=== PATIENT | female | born 1950 | race Caucasian/White ===

== ENCOUNTER 2021-04-06 18:04 | Inpatient (IN) ==
[2021-04-06] MEDS ORDERED: polyethylene glycoL 3350 17 GM POWD.PACK PO PRN (18:15)
[2021-04-06] MEDS ORDERED: *HR* Dextrose 50 % in Water (Syg) 50 ML SYRINGE IVP PRN (18:20)
[2021-04-06] MEDS ORDERED: D5% in Water 1,000 ML IVC PRN (18:20)
[2021-04-06] MEDS ORDERED: Dextrose Gel 15 GM/37.5 ML TUBE PO PRN ×2 (18:20)
[2021-04-07] MEDS: Insulin LISPRO 300 UNITS/3 ML VIAL SUBQ SCH ×5 (01:33→22:30)
[2021-04-07] MEDS: Apixaban 5 MG TABLET PO SCH ×3 (01:33→22:39)
[2021-04-07] MEDS: Gabapentin 400 MG CAPSULE PO SCH ×4 (01:33→22:39)
[2021-04-07] MEDS: Nystatin POWDER 30 GM BOTTLE TP SCH ×4 (01:33→22:40)
[2021-04-07] MEDS: *HR* OxyCODONE Immed Rel 5 MG TABLET PO PRN ×2 (01:40→12:06)
[2021-04-07 08:07] LABS: Basophils % 0.3 %; Eosinophils # 0.3 K/mcL (0.0-0.6); Eosinophils % 8.6 %; Hematocrit 27.3 % (35.3-44.9); Hemoglobin 8.3 g/dL (11.5-15.4); Immature Granulocytes % 1.4 % (0-4); Lymphocytes # 0.8 K/mcL (0.6-4.6); Lymphocytes % 26.4 %; Mean Corpuscular HGB Conc 30.4 g/dL (31.6-35.5); Mean Corpuscular Volume 88.9 fL (83.0-100.0); Mean Platelet Volume 11.3 fL (9.4-12.4); Monocytes # 0.4 K/mcL (0.0-1.3); Neutrophils # 1.5 K/mcL (1.6-8.9); Nucleated Red Blood Cells 0.7 /100 WBC (0); Platelet Count 174 K/mcL (140-400); Red Blood Count 3.07 M/mcL (3.82-4.97); Red Cell Distribution Width 17.2 % (11.5-14.5); Segmented Neutrophils % 51.3 %; White Blood Count 2.9 K/mcL (4.3-11.1)
[2021-04-07 08:23] LABS: BUN/Creatinine Ratio 18 (6-26); Blood Urea Nitrogen 12 mg/dL (8-23); Calcium 8.1 mg/dL (8.6-10.3); Carbon Dioxide 30 mEq/L (23-29); Chloride 101 mEq/L (98-107); Glucose 87 mg/dL (70-105); Osmolality,Calculated 281 (280-300); Potassium 4.1 mEq/L (3.5-5.1); Sodium 136 mEq/L (136-145); eGFR For African Americans > 60 (> 60); eGFR For Non-African Americans > 60 (> 60)
[2021-04-07] MEDS: Magnesium Oxide 400 MG TABLET PO SCH (08:39)
[2021-04-07] MEDS: Metoprolol XL (24 HR) Succ 25 MG TAB.ER.24H PO SCH (08:40)
[2021-04-07] MEDS: Loratadine 10 MG TABLET PO SCH (08:40)
[2021-04-07] MEDS: Aspirin 81 MG TAB.CHEW PO SCH (08:40)
[2021-04-07] MEDS: Insulin DETEMIR 100 UNIT/ML X5UNITS SUBQ SCH ×2 (09:21→22:31)
[2021-04-07 10:59] LABS: Platelet Estimate Normal (Normal)
[2021-04-08] MEDS: Insulin LISPRO 300 UNITS/3 ML VIAL SUBQ SCH ×4 (09:48→20:59)
[2021-04-08] MEDS: Insulin DETEMIR 100 UNIT/ML X5UNITS SUBQ SCH ×2 (10:43→20:59)
[2021-04-08] MEDS: Loratadine 10 MG TABLET PO SCH (10:44)
[2021-04-08] MEDS: Aspirin 81 MG TAB.CHEW PO SCH (10:44)
[2021-04-08] MEDS: Gabapentin 400 MG CAPSULE PO SCH ×3 (10:46→20:58)
[2021-04-08] MEDS: Magnesium Oxide 400 MG TABLET PO SCH (10:46)
[2021-04-08] MEDS: Apixaban 5 MG TABLET PO SCH ×2 (10:46→20:58)
[2021-04-08] MEDS: Metoprolol XL (24 HR) Succ 25 MG TAB.ER.24H PO SCH (10:46)
[2021-04-08] MEDS: Nystatin POWDER 30 GM BOTTLE TP SCH ×3 (12:06→21:00)
[2021-04-08] MEDS: *HR* OxyCODONE Immed Rel 5 MG TABLET PO PRN (21:32)
[2021-04-09] MEDS: Insulin LISPRO 300 UNITS/3 ML VIAL SUBQ SCH ×4 (08:22→20:41)
[2021-04-09] MEDS: Aspirin 81 MG TAB.CHEW PO SCH (08:28)
[2021-04-09] MEDS: Magnesium Oxide 400 MG TABLET PO SCH (08:28)
[2021-04-09] MEDS: Apixaban 5 MG TABLET PO SCH ×2 (08:29→20:37)
[2021-04-09] MEDS: Gabapentin 400 MG CAPSULE PO SCH ×3 (08:29→20:36)
[2021-04-09] MEDS: Metoprolol XL (24 HR) Succ 25 MG TAB.ER.24H PO SCH (08:29)
[2021-04-09] MEDS: Loratadine 10 MG TABLET PO SCH (08:29)
[2021-04-09] MEDS: Insulin DETEMIR 100 UNIT/ML X5UNITS SUBQ SCH ×2 (08:30→20:40)
[2021-04-09] MEDS: Nystatin POWDER 30 GM BOTTLE TP SCH ×3 (09:48→20:41)
[2021-04-10] MEDS: Insulin LISPRO 300 UNITS/3 ML VIAL SUBQ SCH ×4 (07:44→22:02)
[2021-04-10] MEDS: Insulin DETEMIR 100 UNIT/ML X5UNITS SUBQ SCH ×2 (08:00→22:54)
[2021-04-10] MEDS: Loratadine 10 MG TABLET PO SCH (10:25)
[2021-04-10] MEDS: Gabapentin 400 MG CAPSULE PO SCH ×3 (10:25→22:54)
[2021-04-10] MEDS: Aspirin 81 MG TAB.CHEW PO SCH (10:25)
[2021-04-10] MEDS: Metoprolol XL (24 HR) Succ 25 MG TAB.ER.24H PO SCH (10:25)
[2021-04-10] MEDS: Magnesium Oxide 400 MG TABLET PO SCH (10:25)
[2021-04-10] MEDS: Nystatin POWDER 30 GM BOTTLE TP SCH ×3 (10:26→23:00)
[2021-04-10] MEDS: Apixaban 5 MG TABLET PO SCH ×2 (10:28→22:54)
[2021-04-10] MEDS: *HR* OxyCODONE Immed Rel 5 MG TABLET PO PRN (12:22)
[2021-04-11] MEDS: Gabapentin 400 MG CAPSULE PO SCH ×3 (08:04→22:34)
[2021-04-11] MEDS: Aspirin 81 MG TAB.CHEW PO SCH (08:04)
[2021-04-11] MEDS: Apixaban 5 MG TABLET PO SCH ×2 (08:05→22:34)
[2021-04-11] MEDS: Magnesium Oxide 400 MG TABLET PO SCH (08:05)
[2021-04-11] MEDS: Metoprolol XL (24 HR) Succ 25 MG TAB.ER.24H PO SCH (08:05)
[2021-04-11] MEDS: Loratadine 10 MG TABLET PO SCH (08:06)
[2021-04-11] MEDS: Insulin LISPRO 300 UNITS/3 ML VIAL SUBQ SCH ×4 (08:06→22:34)
[2021-04-11] MEDS: Insulin DETEMIR 100 UNIT/ML X5UNITS SUBQ SCH ×2 (08:07→22:34)
[2021-04-11] MEDS: Nystatin POWDER 30 GM BOTTLE TP SCH ×3 (08:10→22:40)
[2021-04-11] MEDS: *HR* OxyCODONE Immed Rel 5 MG TABLET PO PRN (22:36)
[2021-04-12] MEDS: Insulin LISPRO 300 UNITS/3 ML VIAL SUBQ SCH ×3 (08:56→16:50)
[2021-04-12] MEDS: Apixaban 5 MG TABLET PO SCH ×2 (09:01→20:52)
[2021-04-12] MEDS: Gabapentin 400 MG CAPSULE PO SCH ×3 (09:02→20:52)
[2021-04-12] MEDS: Nystatin POWDER 30 GM BOTTLE TP SCH ×2 (09:02→16:50)
[2021-04-12] MEDS: Aspirin 81 MG TAB.CHEW PO SCH (09:02)
[2021-04-12] MEDS: Magnesium Oxide 400 MG TABLET PO SCH (09:02)
[2021-04-12] MEDS: Metoprolol XL (24 HR) Succ 25 MG TAB.ER.24H PO SCH (09:02)
[2021-04-12] MEDS: Loratadine 10 MG TABLET PO SCH (09:02)
[2021-04-12] MEDS: *HR* OxyCODONE Immed Rel 5 MG TABLET PO PRN ×2 (09:11→16:49)
[2021-04-12] MEDS: Insulin DETEMIR 100 UNIT/ML X5UNITS SUBQ SCH ×2 (09:25→20:53)
[2021-04-12 16:05] LABS: Bilirubin,Urine Negative (Negative); Blood,Urine Trace-lysed (Negative); Clarity,Urine Cloudy (Clear); Color,Urine Yellow (Yellow); Glucose,Urine (UA) 250 mg/dL (Normal); Ketones,Urine Negative (Negative); Leukocyte Esterase,Urine Moderate (Negative); Nitrite,Urine Negative (Negative); PH,Urine 5.5 pH Units (5.0-8.0); Protein,Urine Trace mg/dL (Neg-Trace); Specific Gravity,Urine 1.015 (1.010-1.025); Urobilinogen,Urine Normal (Normal)
[2021-04-12 16:10] LABS: Bacteria,Urine Many per hpf (None-Few); RBC,Urine 0-3 per hpf (0-3); Squamous Epithelial Cell,Urine Few per hpf (None-Few); WBC,Urine 50-100 per hpf (0-3)
[2021-04-12] MEDS: Sulfamethoxazole/Trimeth DS 1 EACH TABLET PO SCH (20:53)
[2021-04-13] MEDS: Insulin LISPRO 300 UNITS/3 ML VIAL SUBQ SCH ×5 (00:09→21:09)
[2021-04-13] MEDS: Nystatin POWDER 30 GM BOTTLE TP SCH ×4 (00:10→21:11)
[2021-04-13] MEDS: *HR* OxyCODONE Immed Rel 5 MG TABLET PO PRN ×2 (04:04→11:39)
[2021-04-13] MEDS: Insulin DETEMIR 100 UNIT/ML X5UNITS SUBQ SCH ×2 (10:00→21:03)
[2021-04-13] MEDS: Gabapentin 400 MG CAPSULE PO SCH ×3 (11:38→21:03)
[2021-04-13] MEDS: Loratadine 10 MG TABLET PO SCH (11:38)
[2021-04-13] MEDS: Aspirin 81 MG TAB.CHEW PO SCH (11:38)
[2021-04-13] MEDS: Metoprolol XL (24 HR) Succ 25 MG TAB.ER.24H PO SCH (11:39)
[2021-04-13] MEDS: Sulfamethoxazole/Trimeth DS 1 EACH TABLET PO SCH ×2 (11:39→21:03)
[2021-04-13] MEDS: Magnesium Oxide 400 MG TABLET PO SCH (11:39)
[2021-04-13] MEDS: Apixaban 5 MG TABLET PO SCH ×2 (11:40→21:03)
[2021-04-13 12:37] LABS: Basophils % 0.5 %; Eosinophils # 0.7 K/mcL (0.0-0.6); Eosinophils % 11.1 %; Hematocrit 28.3 % (35.3-44.9); Hemoglobin 8.4 g/dL (11.5-15.4); Immature Granulocytes % 1.8 % (0-4); Lymphocytes % 15.8 %; Mean Corpuscular HGB Conc 29.7 g/dL (31.6-35.5); Mean Corpuscular Hemoglobin 26.8 pg (28.0-33.3); Mean Corpuscular Volume 90.4 fL (83.0-100.0); Mean Platelet Volume 10.5 fL (9.4-12.4); Monocytes # 0.5 K/mcL (0.0-1.3); Monocytes % 7.7 %; Neutrophils # 3.8 K/mcL (1.6-8.9); Platelet Count 286 K/mcL (140-400); Red Blood Count 3.13 M/mcL (3.82-4.97); Red Cell Distribution Width 18.1 % (11.5-14.5); Segmented Neutrophils % 63.1 %
[2021-04-13 12:53] LABS: BUN/Creatinine Ratio 18 (6-26); Blood Urea Nitrogen 15 mg/dL (8-23); Calcium 8.5 mg/dL (8.6-10.3); Carbon Dioxide 28 mEq/L (23-29); Chloride 98 mEq/L (98-107); Glucose 160 mg/dL (70-105); Osmolality,Calculated 280 (280-300); Sodium 133 mEq/L (136-145); eGFR For African Americans > 60 (> 60); eGFR For Non-African Americans > 60 (> 60)
[2021-04-13] MEDS: Fluticasone Propionate Nasal 50 MCG/SPRAY BOTTLE NS SCH (18:21)
[2021-04-14] MEDS: *HR* OxyCODONE Immed Rel 5 MG TABLET PO PRN ×3 (01:17→20:07)
[2021-04-14] MEDS: Insulin LISPRO 300 UNITS/3 ML VIAL SUBQ SCH ×4 (07:34→19:58)
[2021-04-14] MEDS: Sulfamethoxazole/Trimeth DS 1 EACH TABLET PO SCH ×2 (08:41→19:53)
[2021-04-14] MEDS: Apixaban 5 MG TABLET PO SCH ×2 (08:41→19:53)
[2021-04-14] MEDS: Aspirin 81 MG TAB.CHEW PO SCH (08:41)
[2021-04-14] MEDS: Insulin DETEMIR 100 UNIT/ML X5UNITS SUBQ SCH ×2 (08:41→19:55)
[2021-04-14] MEDS: Metoprolol XL (24 HR) Succ 25 MG TAB.ER.24H PO SCH (08:41)
[2021-04-14] MEDS: Loratadine 10 MG TABLET PO SCH (08:41)
[2021-04-14] MEDS: Magnesium Oxide 400 MG TABLET PO SCH (08:41)
[2021-04-14] MEDS: Gabapentin 400 MG CAPSULE PO SCH ×3 (08:41→19:53)
[2021-04-14] MEDS: Fluticasone Propionate Nasal 50 MCG/SPRAY BOTTLE NS SCH (08:52)
[2021-04-14] MEDS: Nystatin POWDER 30 GM BOTTLE TP SCH ×3 (08:56→19:59)
[2021-04-15] MEDS: *HR* OxyCODONE Immed Rel 5 MG TABLET PO PRN ×2 (04:59→14:06)
[2021-04-15] MEDS: Insulin LISPRO 300 UNITS/3 ML VIAL SUBQ SCH ×4 (09:21→20:36)
[2021-04-15] MEDS: Magnesium Oxide 400 MG TABLET PO SCH (09:22)
[2021-04-15] MEDS: Sulfamethoxazole/Trimeth DS 1 EACH TABLET PO SCH ×2 (09:23→20:12)
[2021-04-15] MEDS: Gabapentin 400 MG CAPSULE PO SCH ×3 (09:23→20:12)
[2021-04-15] MEDS: Nystatin POWDER 30 GM BOTTLE TP SCH ×3 (09:23→21:35)
[2021-04-15] MEDS: Loratadine 10 MG TABLET PO SCH (09:23)
[2021-04-15] MEDS: Fluticasone Propionate Nasal 50 MCG/SPRAY BOTTLE NS SCH (09:23)
[2021-04-15] MEDS: Metoprolol XL (24 HR) Succ 25 MG TAB.ER.24H PO SCH (09:23)
[2021-04-15] MEDS: Apixaban 5 MG TABLET PO SCH ×2 (09:24→20:12)
[2021-04-15] MEDS: Insulin DETEMIR 100 UNIT/ML X5UNITS SUBQ SCH ×2 (09:24→20:17)
[2021-04-15] MEDS: Aspirin 81 MG TAB.CHEW PO SCH (09:24)
[2021-04-16] MEDS: Insulin LISPRO 300 UNITS/3 ML VIAL SUBQ SCH ×4 (08:14→22:08)
[2021-04-16 08:33] LABS: Hematocrit 29.1 % (35.3-44.9); Hemoglobin 8.7 g/dL (11.5-15.4); Mean Corpuscular HGB Conc 29.9 g/dL (31.6-35.5); Mean Corpuscular Hemoglobin 26.9 pg (28.0-33.3); Mean Corpuscular Volume 90.1 fL (83.0-100.0); Platelet Count 299 K/mcL (140-400); Red Blood Count 3.23 M/mcL (3.82-4.97); Red Cell Distribution Width 18.7 % (11.5-14.5); White Blood Count 6.5 K/mcL (4.3-11.1)
[2021-04-16] MEDS: Magnesium Oxide 400 MG TABLET PO SCH (08:36)
[2021-04-16] MEDS: Sulfamethoxazole/Trimeth DS 1 EACH TABLET PO SCH ×2 (08:36→22:08)
[2021-04-16] MEDS: Loratadine 10 MG TABLET PO SCH (08:36)
[2021-04-16] MEDS: Aspirin 81 MG TAB.CHEW PO SCH (08:36)
[2021-04-16] MEDS: Apixaban 5 MG TABLET PO SCH ×2 (08:36→22:08)
[2021-04-16] MEDS: Gabapentin 400 MG CAPSULE PO SCH ×3 (08:37→22:08)
[2021-04-16] MEDS: Metoprolol XL (24 HR) Succ 25 MG TAB.ER.24H PO SCH (08:37)
[2021-04-16] MEDS: *HR* OxyCODONE Immed Rel 5 MG TABLET PO PRN (08:43)
[2021-04-16] MEDS: Insulin DETEMIR 100 UNIT/ML X5UNITS SUBQ SCH ×2 (08:43→22:07)
[2021-04-16] MEDS: Fluticasone Propionate Nasal 50 MCG/SPRAY BOTTLE NS SCH (08:44)
[2021-04-16] MEDS: Nystatin POWDER 30 GM BOTTLE TP SCH ×3 (08:44→22:09)
[2021-04-16 09:06] LABS: BUN/Creatinine Ratio 22 (6-26); Blood Urea Nitrogen 19 mg/dL (8-23); Calcium 8.4 mg/dL (8.6-10.3); Carbon Dioxide 26 mEq/L (23-29); Chloride 99 mEq/L (98-107); Glucose 107 mg/dL (70-105); Osmolality,Calculated 279 (280-300); Potassium 3.9 mEq/L (3.5-5.1); Sodium 133 mEq/L (136-145); eGFR For African Americans > 60 (> 60); eGFR For Non-African Americans > 60 (> 60)
[2021-04-17] MEDS: Loratadine 10 MG TABLET PO SCH (08:49)
[2021-04-17] MEDS: Gabapentin 400 MG CAPSULE PO SCH ×3 (08:49→19:44)
[2021-04-17] MEDS: Apixaban 5 MG TABLET PO SCH ×2 (08:49→19:45)
[2021-04-17] MEDS: Sulfamethoxazole/Trimeth DS 1 EACH TABLET PO SCH (08:49)
[2021-04-17] MEDS: Aspirin 81 MG TAB.CHEW PO SCH (08:49)
[2021-04-17] MEDS: Magnesium Oxide 400 MG TABLET PO SCH (08:49)
[2021-04-17] MEDS: Metoprolol XL (24 HR) Succ 25 MG TAB.ER.24H PO SCH (08:50)
[2021-04-17] MEDS: Insulin DETEMIR 100 UNIT/ML X5UNITS SUBQ SCH ×2 (08:51→19:48)
[2021-04-17] MEDS: Nystatin POWDER 30 GM BOTTLE TP SCH ×3 (08:51→19:50)
[2021-04-17] MEDS: Insulin LISPRO 300 UNITS/3 ML VIAL SUBQ SCH ×4 (08:52→19:48)
[2021-04-17] MEDS: Fluticasone Propionate Nasal 50 MCG/SPRAY BOTTLE NS SCH (08:52)
[2021-04-17] MEDS: *HR* OxyCODONE Immed Rel 5 MG TABLET PO PRN (15:14)
[2021-04-18] MEDS: Insulin LISPRO 300 UNITS/3 ML VIAL SUBQ SCH ×4 (09:38→20:26)
[2021-04-18] MEDS: Loratadine 10 MG TABLET PO SCH (09:41)
[2021-04-18] MEDS: Apixaban 5 MG TABLET PO SCH ×2 (09:41→20:27)
[2021-04-18] MEDS: Gabapentin 400 MG CAPSULE PO SCH ×3 (09:41→20:27)
[2021-04-18] MEDS: Aspirin 81 MG TAB.CHEW PO SCH (09:41)
[2021-04-18] MEDS: Metoprolol XL (24 HR) Succ 25 MG TAB.ER.24H PO SCH (09:46)
[2021-04-18] MEDS: Magnesium Oxide 400 MG TABLET PO SCH (09:47)
[2021-04-18] MEDS: Insulin DETEMIR 100 UNIT/ML X5UNITS SUBQ SCH ×2 (09:47→20:27)
[2021-04-18] MEDS: Nystatin POWDER 30 GM BOTTLE TP SCH ×3 (09:49→20:32)
[2021-04-18] MEDS: Fluticasone Propionate Nasal 50 MCG/SPRAY BOTTLE NS SCH (09:49)
[2021-04-18] MEDS: *HR* OxyCODONE Immed Rel 5 MG TABLET PO PRN (16:04)
[2021-04-18] MEDS: Acetaminophen 325 MG TABLET PO PRN (22:13)
[2021-04-19] MEDS: Loratadine 10 MG TABLET PO SCH (08:20)
[2021-04-19] MEDS: Magnesium Oxide 400 MG TABLET PO SCH (08:20)
[2021-04-19] MEDS: Metoprolol XL (24 HR) Succ 25 MG TAB.ER.24H PO SCH (08:20)
[2021-04-19] MEDS: Aspirin 81 MG TAB.CHEW PO SCH (08:20)
[2021-04-19] MEDS: Apixaban 5 MG TABLET PO SCH ×2 (08:20→20:51)
[2021-04-19] MEDS: Insulin LISPRO 300 UNITS/3 ML VIAL SUBQ SCH ×4 (08:21→20:46)
[2021-04-19] MEDS: Insulin DETEMIR 100 UNIT/ML X5UNITS SUBQ SCH ×2 (08:21→20:52)
[2021-04-19] MEDS: Gabapentin 400 MG CAPSULE PO SCH ×3 (08:21→20:51)
[2021-04-19] MEDS: Nystatin POWDER 30 GM BOTTLE TP SCH ×3 (08:22→21:02)
[2021-04-19] MEDS: Fluticasone Propionate Nasal 50 MCG/SPRAY BOTTLE NS SCH (08:23)
[2021-04-19] MEDS: *HR* OxyCODONE Immed Rel 5 MG TABLET PO PRN ×2 (10:55→18:06)
[2021-04-19] MEDS: Acetaminophen 325 MG TABLET PO PRN (20:51)
[2021-04-20] MEDS: Insulin LISPRO 300 UNITS/3 ML VIAL SUBQ SCH ×4 (08:23→21:20)
[2021-04-20] MEDS: Metoprolol XL (24 HR) Succ 25 MG TAB.ER.24H PO SCH (09:11)
[2021-04-20] MEDS: Aspirin 81 MG TAB.CHEW PO SCH (09:11)
[2021-04-20] MEDS: Gabapentin 400 MG CAPSULE PO SCH ×3 (09:11→21:10)
[2021-04-20] MEDS: Loratadine 10 MG TABLET PO SCH (09:12)
[2021-04-20] MEDS: Nystatin POWDER 30 GM BOTTLE TP SCH ×3 (09:12→21:10)
[2021-04-20] MEDS: Apixaban 5 MG TABLET PO SCH ×2 (09:12→21:10)
[2021-04-20] MEDS: Magnesium Oxide 400 MG TABLET PO SCH (09:12)
[2021-04-20] MEDS: Fluticasone Propionate Nasal 50 MCG/SPRAY BOTTLE NS SCH (09:15)
[2021-04-20] MEDS: Insulin DETEMIR 100 UNIT/ML X5UNITS SUBQ SCH ×2 (09:21→21:10)
[2021-04-20] MEDS: *HR* OxyCODONE Immed Rel 5 MG TABLET PO PRN (10:19)
[2021-04-21 08:26] LABS: Basophils % 0.6 %; Eosinophils # 0.9 K/mcL (0.0-0.6); Hematocrit 27.8 % (35.3-44.9); Hemoglobin 8.4 g/dL (11.5-15.4); Immature Granulocytes % 1.3 % (0-4); Lymphocytes # 0.9 K/mcL (0.6-4.6); Mean Corpuscular HGB Conc 30.2 g/dL (31.6-35.5); Mean Corpuscular Hemoglobin 27.1 pg (28.0-33.3); Mean Corpuscular Volume 89.7 fL (83.0-100.0); Mean Platelet Volume 9.4 fL (9.4-12.4); Monocytes # 0.5 K/mcL (0.0-1.3); Monocytes % 9.3 %; Neutrophils # 2.9 K/mcL (1.6-8.9); Platelet Count 255 K/mcL (140-400); Red Cell Distribution Width 19.1 % (11.5-14.5); Segmented Neutrophils % 54.8 %; White Blood Count 5.3 K/mcL (4.3-11.1)
[2021-04-21] MEDS: Insulin LISPRO 300 UNITS/3 ML VIAL SUBQ SCH ×4 (08:38→21:00)
[2021-04-21 08:46] LABS: BUN/Creatinine Ratio 24 (6-26); Blood Urea Nitrogen 17 mg/dL (8-23); Calcium 8.5 mg/dL (8.6-10.3); Carbon Dioxide 30 mEq/L (23-29); Chloride 100 mEq/L (98-107); Glucose 132 mg/dL (70-105); Osmolality,Calculated 283 (280-300); Potassium 4.1 mEq/L (3.5-5.1); Sodium 135 mEq/L (136-145); eGFR For African Americans > 60 (> 60); eGFR For Non-African Americans > 60 (> 60)
[2021-04-21] MEDS: Aspirin 81 MG TAB.CHEW PO SCH (08:47)
[2021-04-21] MEDS: Loratadine 10 MG TABLET PO SCH (08:47)
[2021-04-21] MEDS: Gabapentin 400 MG CAPSULE PO SCH ×3 (08:48→20:59)
[2021-04-21] MEDS: Magnesium Oxide 400 MG TABLET PO SCH (08:48)
[2021-04-21] MEDS: Apixaban 5 MG TABLET PO SCH ×2 (08:48→20:59)
[2021-04-21] MEDS: Metoprolol XL (24 HR) Succ 25 MG TAB.ER.24H PO SCH (08:48)
[2021-04-21] MEDS: Fluticasone Propionate Nasal 50 MCG/SPRAY BOTTLE NS SCH (08:49)
[2021-04-21] MEDS: Insulin DETEMIR 100 UNIT/ML X5UNITS SUBQ SCH ×2 (08:49→21:00)
[2021-04-21] MEDS: Nystatin POWDER 30 GM BOTTLE TP SCH ×3 (08:50→21:00)
[2021-04-21] MEDS: *HR* OxyCODONE Immed Rel 5 MG TABLET PO PRN (11:06)
[2021-04-21] MEDS: Acetaminophen 325 MG TABLET PO PRN (14:41)
[2021-04-22] MEDS: Gabapentin 400 MG CAPSULE PO SCH ×3 (08:34→22:06)
[2021-04-22] MEDS: Metoprolol XL (24 HR) Succ 25 MG TAB.ER.24H PO SCH (08:34)
[2021-04-22] MEDS: Aspirin 81 MG TAB.CHEW PO SCH (08:34)
[2021-04-22] MEDS: Loratadine 10 MG TABLET PO SCH (08:34)
[2021-04-22] MEDS: Insulin DETEMIR 100 UNIT/ML X5UNITS SUBQ SCH ×2 (08:35→22:06)
[2021-04-22] MEDS: Apixaban 5 MG TABLET PO SCH ×2 (08:35→22:06)
[2021-04-22] MEDS: Insulin LISPRO 300 UNITS/3 ML VIAL SUBQ SCH ×4 (08:36→22:06)
[2021-04-22] MEDS: Magnesium Oxide 400 MG TABLET PO SCH (08:37)
[2021-04-22] MEDS: Nystatin POWDER 30 GM BOTTLE TP SCH ×3 (08:38→22:07)
[2021-04-22] MEDS: Fluticasone Propionate Nasal 50 MCG/SPRAY BOTTLE NS SCH (08:39)
[2021-04-22] MEDS: *HR* OxyCODONE Immed Rel 5 MG TABLET PO PRN (12:57)
[2021-04-22 18:25] LABS: Adenovirus Not Detected (Not Detect); Coronavirus 229E Not Detected (Not Detect); Coronavirus HKU1 Not Detected (Not Detect); Coronavirus NL63 Not Detected (Not Detect); Coronavirus OC43 Not Detected (Not Detect)
[2021-04-22 18:27] LABS: Bordetella Pertussis Not Detected (Not Detect); Chlamydophila pneumoniae Not Detected (Not Detect); Human Metapneumovirus Not Detected (Not Detect); Human Rhinovirus/Enterovirus Not Detected (Not Detect); Influenza A Subtype 2009 H1 Not Detected (Not Detect); Influenza B Not Detected (Not Detect); Mycoplasma pneumoniae Not Detected (Not Detect); Parainfluenza Virus 1 Not Detected (Not Detect); Parainfluenza Virus 2 Not Detected (Not Detect); Parainfluenza Virus 3 Not Detected (Not Detect); Parainfluenza Virus 4 Not Detected (Not Detect); Respiratory Syncytial Virus Not Detected (Not Detect); SARS-CoV-2 DETECTED (Not Detect)
[2021-04-22] MEDS ORDERED: Benzonatate 100 MG CAPSULE PO PRN (20:49)
[2021-04-23] MEDS: Insulin LISPRO 300 UNITS/3 ML VIAL SUBQ SCH ×4 (07:57→20:48)
[2021-04-23] MEDS: Metoprolol XL (24 HR) Succ 25 MG TAB.ER.24H PO SCH (08:50)
[2021-04-23] MEDS: Aspirin 81 MG TAB.CHEW PO SCH (08:50)
[2021-04-23] MEDS: Gabapentin 400 MG CAPSULE PO SCH ×3 (08:50→22:02)
[2021-04-23] MEDS: Loratadine 10 MG TABLET PO SCH (08:51)
[2021-04-23] MEDS: Apixaban 5 MG TABLET PO SCH ×2 (08:51→22:02)
[2021-04-23] MEDS: Magnesium Oxide 400 MG TABLET PO SCH (08:51)
[2021-04-23] MEDS: Insulin DETEMIR 100 UNIT/ML X5UNITS SUBQ SCH ×2 (08:52→22:03)
[2021-04-23] MEDS: Fluticasone Propionate Nasal 50 MCG/SPRAY BOTTLE NS SCH (08:52)
[2021-04-23] MEDS: Nystatin POWDER 30 GM BOTTLE TP SCH ×3 (09:24→22:03)
[2021-04-23] MEDS: *HR* OxyCODONE Immed Rel 5 MG TABLET PO PRN ×2 (09:32→22:02)
[2021-04-23] MEDS: Acetaminophen 325 MG TABLET PO PRN (12:29)
[2021-04-23] MEDS ORDERED: Ondansetron ODT 4 MG TAB.RAPDIS SL PRN (17:43)
[2021-04-24 07:20] VITALS: BP 147/75; PULSE 81; RESP 18; TEMP 97.9; O2SAT 98
[2021-04-24] MEDS: Insulin LISPRO 300 UNITS/3 ML VIAL SUBQ SCH (08:01)
[2021-04-24] MEDS: *HR* OxyCODONE Immed Rel 5 MG TABLET PO PRN (09:28)
[2021-04-24] MEDS: Magnesium Oxide 400 MG TABLET PO SCH (09:28)
[2021-04-24] MEDS: Gabapentin 400 MG CAPSULE PO SCH (09:28)
[2021-04-24] MEDS: Loratadine 10 MG TABLET PO SCH (09:28)
[2021-04-24] MEDS: Apixaban 5 MG TABLET PO SCH (09:28)
[2021-04-24] MEDS: Metoprolol XL (24 HR) Succ 25 MG TAB.ER.24H PO SCH (09:28)
[2021-04-24] MEDS: Aspirin 81 MG TAB.CHEW PO SCH (09:28)
[2021-04-24] MEDS: Fluticasone Propionate Nasal 50 MCG/SPRAY BOTTLE NS SCH (09:30)
[2021-04-24] MEDS: Insulin DETEMIR 100 UNIT/ML X5UNITS SUBQ SCH (09:30)
[2021-04-24] MEDS: Nystatin POWDER 30 GM BOTTLE TP SCH (09:31)
== END 2021-04-24 11:00 | disposition left against medical advice (07) | DRG 535 ==
LOC: INPPIK 23:45
PROVIDERS: ADMIT Family Medicine; ATTEND Family Medicine

== ENCOUNTER 2021-11-23 15:13 | Inpatient (IN) ==
[2021-11-23] MEDS ORDERED: 0.9 % Sodium Chloride 1,000 ML IV ONE ×2 (15:22→16:37)
[2021-11-23 16:05] LABS: Basophils % 0.3 %; Eosinophils # 0.2 K/mcL (0.0-0.6); Eosinophils % 2.9 %; Hematocrit 35.7 % (35.3-44.9); Hemoglobin 11.2 g/dL (11.5-15.4); Immature Granulocytes % 1.2 % (0-4); Lymphocytes # 1.2 K/mcL (0.6-4.6); Lymphocytes % 18.6 %; Mean Corpuscular HGB Conc 31.4 g/dL (31.6-35.5); Mean Corpuscular Hemoglobin 27.1 pg (28.0-33.3); Mean Corpuscular Volume 86.4 fL (83.0-100.0); Mean Platelet Volume 9.9 fL (9.4-12.4); Monocytes # 0.6 K/mcL (0.0-1.3); Monocytes % 9.2 %; Neutrophils # 4.5 K/mcL (1.6-8.9); Nucleated Red Blood Cells 0.5 /100 WBC (0); Platelet Count 258 K/mcL (140-400); Red Blood Count 4.13 M/mcL (3.82-4.97); Red Cell Distribution Width 20.7 % (11.5-14.5); Segmented Neutrophils % 67.8 %; White Blood Count 6.6 K/mcL (4.3-11.1)
[2021-11-23 16:16] LABS: INR 1.5; Prothrombin Time 16.7 Seconds (9.4-12.1)
[2021-11-23 16:16] LABS: Bilirubin,Urine Negative (Negative); Blood,Urine Negative (Negative); Clarity,Urine Slightly Cloudy (Clear); Color,Urine Yellow (Yellow); Glucose,Urine (UA) Normal (Normal); Ketones,Urine Negative (Negative); Leukocyte Esterase,Urine Small (Negative); Nitrite,Urine Negative (Negative); Protein,Urine Negative (Neg-Trace); Specific Gravity,Urine 1.025 (1.010-1.025); Urobilinogen,Urine Normal (Normal)
[2021-11-23 16:19] LABS: Activated Partial Thrombo Time 25.8 Seconds (26.0-36.0)
[2021-11-23 16:23] LABS: Bacteria,Urine Many per hpf (None-Few); Squamous Epithelial Cell,Urine Few per hpf (None-Few)
[2021-11-23 16:26] LABS: Alanine Aminotransferase 9 Units/L (7-52); Albumin 2.6 g/dL (3.5-5.7); Albumin/Globulin Ratio 0.7 (1.1-2.2); Alkaline Phosphatase 72 Units/L (34-104); Aspartate Amino Transferase 14 Units/L (13-39); BUN/Creatinine Ratio 39 (6-26); Bilirubin,Total 0.5 mg/dL (0.3-1.0); Blood Urea Nitrogen 29 mg/dL (8-23); Calcium 8.6 mg/dL (8.6-10.3); Carbon Dioxide 20 mEq/L (23-29); Chloride 109 mEq/L (98-107); Creatine Kinase 18 Units/L (30-223); Globulin 3.5 g/dL (2.4-3.5); Glucose 134 mg/dL (70-105); Magnesium 1.5 mg/dL (1.6-2.6); Osmolality,Calculated 294 (280-300); Phosphorous 2.5 mg/dL (2.7-4.5); Potassium 3.9 mEq/L (3.5-5.1); Sodium 138 mEq/L (136-145); Total Protein 6.1 g/dL (6.4-8.9); eGFR For African Americans > 60 (> 60); eGFR For Non-African Americans > 60 (> 60)
[2021-11-23 16:27] LABS: Troponin I < 0.03 ng/mL (< 0.04)
[2021-11-23] MEDS ORDERED: cefTRIAXone 1,000 MG in 0.9 % Sodium Chloride Mini Bag 100 ML IVPB ONE (16:38)
[2021-11-23] MEDS ORDERED: Naloxone 0.4 MG/ML INJ IVP PRN (18:10)
[2021-11-23] MEDS ORDERED: polyethylene glycoL 3350 17 GM POWD.PACK PO PRN (18:12)
[2021-11-23] MEDS: Gabapentin 400 MG CAPSULE PO SCH (23:43)
[2021-11-23] MEDS: Nystatin POWDER 30 GM BOTTLE TP SCH (23:43)
[2021-11-23] MEDS: Apixaban 5 MG TABLET PO SCH (23:43)
[2021-11-24 01:54] LABS: Basophils % 0.3 %; Eosinophils # 0.2 K/mcL (0.0-0.6); Eosinophils % 3.5 %; Hematocrit 31.5 % (35.3-44.9); Hemoglobin 9.8 g/dL (11.5-15.4); Immature Granulocytes % 1.7 % (0-4); Lymphocytes % 16.7 %; Mean Corpuscular HGB Conc 31.1 g/dL (31.6-35.5); Mean Corpuscular Hemoglobin 26.8 pg (28.0-33.3); Mean Corpuscular Volume 86.1 fL (83.0-100.0); Mean Platelet Volume 9.6 fL (9.4-12.4); Monocytes # 0.5 K/mcL (0.0-1.3); Monocytes % 9.4 %; Neutrophils # 3.9 K/mcL (1.6-8.9); Platelet Count 222 K/mcL (140-400); Red Blood Count 3.66 M/mcL (3.82-4.97); Red Cell Distribution Width 20.6 % (11.5-14.5); Segmented Neutrophils % 68.4 %; White Blood Count 5.7 K/mcL (4.3-11.1)
[2021-11-24 02:13] LABS: BUN/Creatinine Ratio 41 (6-26); Blood Urea Nitrogen 21 mg/dL (8-23); Calcium 7.5 mg/dL (8.6-10.3); Carbon Dioxide 20 mEq/L (23-29); Chloride 112 mEq/L (98-107); Glucose 111 mg/dL (70-105); Magnesium 1.7 mg/dL (1.6-2.6); Osmolality,Calculated 292 (280-300); Potassium 3.4 mEq/L (3.5-5.1); Sodium 139 mEq/L (136-145); eGFR For African Americans > 60 (> 60); eGFR For Non-African Americans > 60 (> 60)
[2021-11-24] MEDS ORDERED: Potassium Phosphate 44 MEQ in 0.9 % Sodium Chloride 250 ML IVPB ONE (08:58)
[2021-11-24] MEDS: Cefdinir 300 MG CAPSULE PO SCH ×2 (10:58→19:44)
[2021-11-24] MEDS: Magnesium Oxide 400 MG TABLET PO SCH (10:58)
[2021-11-24] MEDS: Apixaban 5 MG TABLET PO SCH ×2 (10:58→19:44)
[2021-11-24] MEDS: Aspirin 81 MG TAB.CHEW PO SCH (10:58)
[2021-11-24] MEDS: Gabapentin 400 MG CAPSULE PO SCH ×3 (10:58→19:44)
[2021-11-24] MEDS: Loratadine 10 MG TABLET PO SCH (10:59)
[2021-11-24] MEDS: Metoprolol XL (24 HR) Succ 25 MG TAB.ER.24H PO SCH (10:59)
[2021-11-24] MEDS: LENVATINIB PO SCH (11:00)
[2021-11-24] MEDS: Fluconazole 150 MG TABLET PO SCH (11:12)
[2021-11-24] MEDS: Nystatin POWDER 30 GM BOTTLE TP SCH ×3 (11:13→19:44)
[2021-11-24] MEDS: Desitin (Zinc Oxide) Max 57 GM TUBE TP SCH ×2 (11:15→19:44)
[2021-11-24] MEDS ORDERED: *HR* Dextrose 50 % in Water (Syg) 50 ML SYRINGE IVP PRN (11:17)
[2021-11-24] MEDS ORDERED: D5% in Water 1,000 ML IVC PRN (11:17)
[2021-11-24] MEDS ORDERED: Dextrose Gel 15 GM/37.5 ML TUBE PO PRN ×2 (11:17)
[2021-11-24] MEDS: *HR* OxyCODONE Immed Rel 5 MG TABLET PO PRN (11:36)
[2021-11-24] MEDS: Insulin LISPRO 300 UNITS/3 ML VIAL SUBQ SCH ×3 (12:08→19:47)
[2021-11-25] MEDS: Insulin LISPRO 300 UNITS/3 ML VIAL SUBQ SCH ×4 (07:24→21:16)
[2021-11-25 08:26] LABS: Basophils % 0.4 %; Eosinophils # 0.3 K/mcL (0.0-0.6); Eosinophils % 3.5 %; Hematocrit 37.3 % (35.3-44.9); Hemoglobin 11.5 g/dL (11.5-15.4); Immature Granulocytes % 1.2 % (0-4); Lymphocytes # 1.3 K/mcL (0.6-4.6); Mean Corpuscular HGB Conc 30.8 g/dL (31.6-35.5); Mean Corpuscular Hemoglobin 26.7 pg (28.0-33.3); Mean Corpuscular Volume 86.5 fL (83.0-100.0); Mean Platelet Volume 9.5 fL (9.4-12.4); Monocytes # 0.6 K/mcL (0.0-1.3); Monocytes % 6.6 %; Neutrophils # 6.2 K/mcL (1.6-8.9); Platelet Count 226 K/mcL (140-400); Red Blood Count 4.31 M/mcL (3.82-4.97); Red Cell Distribution Width 20.6 % (11.5-14.5); Segmented Neutrophils % 73.3 %; White Blood Count 8.4 K/mcL (4.3-11.1)
[2021-11-25 08:51] LABS: BUN/Creatinine Ratio 27 (6-26); Blood Urea Nitrogen 17 mg/dL (8-23); Carbon Dioxide 22 mEq/L (23-29); Chloride 109 mEq/L (98-107); Glucose 116 mg/dL (70-105); Magnesium 1.6 mg/dL (1.6-2.6); Osmolality,Calculated 289 (280-300); Phosphorous 2.4 mg/dL (2.7-4.5); Sodium 138 mEq/L (136-145); eGFR For African Americans > 60 (> 60); eGFR For Non-African Americans > 60 (> 60)
[2021-11-25] MEDS ORDERED: Cefdinir 300 MG CAPSULE PO SCH (09:00)
[2021-11-25] MEDS: Apixaban 5 MG TABLET PO SCH ×2 (10:20→21:23)
[2021-11-25] MEDS: Aspirin 81 MG TAB.CHEW PO SCH (10:21)
[2021-11-25] MEDS: Metoprolol XL (24 HR) Succ 25 MG TAB.ER.24H PO SCH (10:21)
[2021-11-25] MEDS: Magnesium Oxide 400 MG TABLET PO SCH (10:22)
[2021-11-25] MEDS: Fluconazole 150 MG TABLET PO SCH (10:22)
[2021-11-25] MEDS: Gabapentin 400 MG CAPSULE PO SCH ×3 (10:22→21:23)
[2021-11-25] MEDS: Sulfamethoxazole/Trimeth DS 1 EACH TABLET PO SCH ×2 (10:22→21:22)
[2021-11-25] MEDS: Loratadine 10 MG TABLET PO SCH (10:22)
[2021-11-25] MEDS: Desitin (Zinc Oxide) Max 57 GM TUBE TP SCH ×2 (10:23→21:23)
[2021-11-25] MEDS: Nystatin POWDER 30 GM BOTTLE TP SCH ×3 (10:23→21:23)
[2021-11-25] MEDS: LENVATINIB PO SCH (10:24)
[2021-11-25] MEDS: *HR* OxyCODONE Immed Rel 5 MG TABLET PO PRN (17:36)
[2021-11-26] MEDS: *HR* OxyCODONE Immed Rel 5 MG TABLET PO PRN (05:51)
[2021-11-26] MEDS: Insulin LISPRO 300 UNITS/3 ML VIAL SUBQ SCH ×3 (07:16→16:40)
[2021-11-26 07:57] LABS: Basophils % 0.2 %; Eosinophils # 0.2 K/mcL (0.0-0.6); Eosinophils % 2.4 %; Hematocrit 33.6 % (35.3-44.9); Hemoglobin 10.3 g/dL (11.5-15.4); Immature Granulocytes % 0.8 % (0-4); Lymphocytes # 1.4 K/mcL (0.6-4.6); Lymphocytes % 16.5 %; Mean Corpuscular HGB Conc 30.7 g/dL (31.6-35.5); Mean Platelet Volume 10.4 fL (9.4-12.4); Monocytes # 0.7 K/mcL (0.0-1.3); Monocytes % 7.9 %; Neutrophils # 6.3 K/mcL (1.6-8.9); Platelet Count 218 K/mcL (140-400); Red Blood Count 3.82 M/mcL (3.82-4.97); Segmented Neutrophils % 72.2 %; White Blood Count 8.8 K/mcL (4.3-11.1)
[2021-11-26 08:08] LABS: Alanine Aminotransferase 11 Units/L (7-52); Albumin 2.1 g/dL (3.5-5.7); Albumin/Globulin Ratio 0.7 (1.1-2.2); Alkaline Phosphatase 66 Units/L (34-104); Aspartate Amino Transferase 18 Units/L (13-39); BUN/Creatinine Ratio 24 (6-26); Bilirubin,Total 0.6 mg/dL (0.3-1.0); Blood Urea Nitrogen 17 mg/dL (8-23); Calcium 7.7 mg/dL (8.6-10.3); Carbon Dioxide 23 mEq/L (23-29); Chloride 108 mEq/L (98-107); Globulin 3.1 g/dL (2.4-3.5); Glucose 116 mg/dL (70-105); Magnesium 1.6 mg/dL (1.6-2.6); Osmolality,Calculated 287 (280-300); Phosphorous 2.5 mg/dL (2.7-4.5); Potassium 4.2 mEq/L (3.5-5.1); Sodium 137 mEq/L (136-145); Total Protein 5.2 g/dL (6.4-8.9); eGFR For African Americans > 60 (> 60); eGFR For Non-African Americans > 60 (> 60)
[2021-11-26] MEDS: Sulfamethoxazole/Trimeth DS 1 EACH TABLET PO SCH (08:59)
[2021-11-26] MEDS: Apixaban 5 MG TABLET PO SCH (08:59)
[2021-11-26] MEDS: Aspirin 81 MG TAB.CHEW PO SCH (08:59)
[2021-11-26] MEDS: Gabapentin 400 MG CAPSULE PO SCH ×2 (09:00→16:05)
[2021-11-26] MEDS: Magnesium Oxide 400 MG TABLET PO SCH (09:00)
[2021-11-26] MEDS: Loratadine 10 MG TABLET PO SCH (09:00)
[2021-11-26] MEDS: Metoprolol XL (24 HR) Succ 25 MG TAB.ER.24H PO SCH (09:00)
[2021-11-26] MEDS: LENVATINIB PO SCH (09:01)
[2021-11-26] MEDS: Nystatin POWDER 30 GM BOTTLE TP SCH ×2 (09:01→16:06)
[2021-11-26] MEDS: Fluconazole 150 MG TABLET PO SCH (09:01)
[2021-11-26] MEDS: Desitin (Zinc Oxide) Max 57 GM TUBE TP SCH (09:01)
[2021-11-26] MEDS ORDERED: Acetaminophen 325 MG TABLET PO PRN (14:47)
[2021-11-26] MEDS ORDERED: 0.9 % Sodium Chloride 500 ML ONE (15:52)
[2021-11-26] MEDS ORDERED: Ondansetron ODT 4 MG TAB.RAPDIS SL PRN (16:08)
[2021-11-26] MEDS ORDERED: levoFLOXacin 250 MG TABLET PO SCH (18:00)
[2021-11-26] MEDS ORDERED: 0.9 % Sodium Chloride 1,000 ML IVC SCH ×2 (18:00→19:00)
[2021-11-26 18:27] LABS: Basophils % 0.3 %; Eosinophils # 0.1 K/mcL (0.0-0.6); Eosinophils % 0.8 %; Hematocrit 36.9 % (35.3-44.9); Hemoglobin 11.2 g/dL (11.5-15.4); Immature Granulocytes % 0.9 % (0-4); Lymphocytes % 14.1 %; Mean Corpuscular HGB Conc 30.4 g/dL (31.6-35.5); Mean Corpuscular Hemoglobin 27.1 pg (28.0-33.3); Mean Corpuscular Volume 89.3 fL (83.0-100.0); Mean Platelet Volume 10.4 fL (9.4-12.4); Monocytes # 1.2 K/mcL (0.0-1.3); Monocytes % 8.2 %; Neutrophils # 10.9 K/mcL (1.6-8.9); Nucleated Red Blood Cells 0.1 /100 WBC (0); Platelet Count 227 K/mcL (140-400); Red Blood Count 4.13 M/mcL (3.82-4.97); Red Cell Distribution Width 21.1 % (11.5-14.5); Segmented Neutrophils % 75.7 %; White Blood Count 14.4 K/mcL (4.3-11.1)
[2021-11-26 18:42] LABS: Calcium 7.9 mg/dL (8.6-10.3); Potassium 4.7 mEq/L (3.5-5.1)
[2021-11-26] MEDS ORDERED: Piperacillin/Tazobactam 3.375 GM in 0.9 % Sodium Chloride Mini Bag 100 ML IVPB SCH (19:00)
[2021-11-26 20:14] VITALS: BP 98/61; PULSE 88; RESP 12; TEMP 97.8; O2SAT 93
[2021-11-27] MEDS ORDERED: levoFLOXacin 250 MG TABLET PO SCH (09:00)
== END 2021-11-26 21:05 | disposition short-term general hospital (02) | DRG 871 ==
LOC: INPPIK 15:13 → EMEROOPIK 15:13 → INPPIK 22:51
PROVIDERS: ADMIT Internal Medicine; ATTEND Internal Medicine

== ENCOUNTER 2021-12-06 14:41 | Inpatient (IN) ==
[2021-12-06] MEDS ORDERED: D5% in Water 1,000 ML IVC PRN (15:59)
[2021-12-06] MEDS ORDERED: *HR* Dextrose 50 % in Water (Syg) 50 ML SYRINGE IVP PRN (15:59)
[2021-12-06] MEDS ORDERED: Dextrose Gel 15 GM/37.5 ML TUBE PO PRN ×2 (15:59)
[2021-12-06] MEDS ORDERED: Acetaminophen 325 MG TABLET PO PRN (20:55)
[2021-12-06] MEDS ORDERED: Insulin DETEMIR 100 UNIT/ML per UNIT SUBQ SCH (21:00)
[2021-12-06] MEDS: Insulin LISPRO 300 UNITS/3 ML VIAL SUBQ SCH ×2 (21:22→21:37)
[2021-12-06] MEDS: metroNIDAZOLE 500 MG TABLET PO SCH (22:27)
[2021-12-06] MEDS: Apixaban 5 MG TABLET PO SCH (22:27)
[2021-12-06] MEDS: Gabapentin 400 MG CAPSULE PO SCH (22:27)
[2021-12-07 05:41] LABS: Basophils % 0.6 %; Eosinophils # 0.2 K/mcL (0.0-0.6); Eosinophils % 3.6 %; Hematocrit 27.9 % (35.3-44.9); Hemoglobin 8.6 g/dL (11.5-15.4); Immature Granulocytes % 2.3 % (0-4); Lymphocytes # 1.3 K/mcL (0.6-4.6); Lymphocytes % 24.5 %; Mean Corpuscular HGB Conc 30.8 g/dL (31.6-35.5); Mean Corpuscular Hemoglobin 27.2 pg (28.0-33.3); Mean Corpuscular Volume 88.3 fL (83.0-100.0); Mean Platelet Volume 9.7 fL (9.4-12.4); Monocytes # 0.6 K/mcL (0.0-1.3); Monocytes % 10.6 %; Neutrophils # 3.1 K/mcL (1.6-8.9); Nucleated Red Blood Cells 0.6 /100 WBC (0); Platelet Count 245 K/mcL (140-400); Red Blood Count 3.16 M/mcL (3.82-4.97); Red Cell Distribution Width 21.6 % (11.5-14.5); Segmented Neutrophils % 58.4 %; White Blood Count 5.3 K/mcL (4.3-11.1)
[2021-12-07 06:01] LABS: Calcium 7.5 mg/dL (8.6-10.3)
[2021-12-07] MEDS: Insulin LISPRO 300 UNITS/3 ML VIAL SUBQ SCH ×4 (07:55→19:38)
[2021-12-07] MEDS ORDERED: LENVATINIB MESYLATE PO SCH (09:00)
[2021-12-07] MEDS: Gabapentin 400 MG CAPSULE PO SCH ×3 (09:42→20:51)
[2021-12-07] MEDS: Apixaban 5 MG TABLET PO SCH ×2 (09:42→20:50)
[2021-12-07] MEDS: metroNIDAZOLE 500 MG TABLET PO SCH ×3 (09:42→20:51)
[2021-12-07] MEDS: Insulin DETEMIR 100 UNIT/ML X5UNITS SUBQ SCH ×2 (12:30→20:51)
[2021-12-08] MEDS ORDERED: 0.9 % Sodium Chloride 1,000 ML IVC ONE (01:03)
[2021-12-08 01:44] LABS: ABG Base Excess -4 mEq/L (-2 to 3); ABG HCO3 20 mEq/L (21-27); ABG Oxygen Saturation 96 % (95-98); ABG PCO2 34 mmHg (35-45); ABG PH 7.39 pH Units (7.32-7.45); ABG PO2 84 mmHg (85-104); ABG TCO2 21 mEq/L (20-26)
[2021-12-08] MEDS: Ipratropium/Albuterol Neb 3 ML IH SCH ×4 (02:28→15:57)
[2021-12-08 03:00] LABS: Basophils % 0.5 %; Eosinophils # 0.2 K/mcL (0.0-0.6); Hematocrit 27.7 % (35.3-44.9); Hemoglobin 8.3 g/dL (11.5-15.4); Immature Granulocytes % 2.7 % (0-4); Lymphocytes # 1.4 K/mcL (0.6-4.6); Lymphocytes % 18.3 %; Mean Corpuscular Hemoglobin 27.1 pg (28.0-33.3); Mean Corpuscular Volume 90.5 fL (83.0-100.0); Mean Platelet Volume 10.9 fL (9.4-12.4); Monocytes # 0.7 K/mcL (0.0-1.3); Monocytes % 8.6 %; Neutrophils # 5.3 K/mcL (1.6-8.9); Nucleated Red Blood Cells 0.4 /100 WBC (0); Platelet Count 250 K/mcL (140-400); Red Blood Count 3.06 M/mcL (3.82-4.97); Segmented Neutrophils % 66.9 %; White Blood Count 7.9 K/mcL (4.3-11.1)
[2021-12-08 03:10] LABS: INR 1.8
[2021-12-08 03:17] LABS: Activated Partial Thrombo Time 20.9 Seconds (26.0-36.0)
[2021-12-08 04:29] LABS: Albumin/Globulin Ratio 0.7 (1.1-2.2); Bilirubin,Total 0.3 mg/dL (0.3-1.0); Calcium 7.2 mg/dL (8.6-10.3); Globulin 2.8 g/dL (2.4-3.5); Phosphorous 3.2 mg/dL (2.7-4.5); Potassium 4.1 mEq/L (3.5-5.1); Total Protein 4.8 g/dL (6.4-8.9)
[2021-12-08 05:14] VITALS: RESP 18; TEMP 98.2; O2SAT 94
[2021-12-08] MEDS ORDERED: Albumin 25% 25gram/100mL 25 GM/100 ML IV.SOLN IVPB ONE (05:48)
[2021-12-08 06:21] LABS: Magnesium 1.4 mg/dL (1.6-2.6)
[2021-12-08 06:46] LABS: Bilirubin,Urine Negative (Negative); Blood,Urine Negative (Negative); Clarity,Urine Slightly Cloudy (Clear); Color,Urine Dark Yellow (Yellow); Glucose,Urine (UA) Normal (Normal); Ketones,Urine Negative (Negative); Leukocyte Esterase,Urine Negative (Negative); Nitrite,Urine Positive (Negative); PH,Urine 5.5 pH Units (5.0-8.0); Protein,Urine Negative (Neg-Trace); Specific Gravity,Urine 1.025 (1.010-1.025); Urobilinogen,Urine Normal (Normal)
[2021-12-08] MEDS: Insulin LISPRO 300 UNITS/3 ML VIAL SUBQ SCH ×2 (07:57→12:17)
[2021-12-08] MEDS: Insulin DETEMIR 100 UNIT/ML X5UNITS SUBQ SCH (08:10)
[2021-12-08 08:22] LABS: Basophils % 0.5 %; Eosinophils # 0.2 K/mcL (0.0-0.6); Eosinophils % 2.3 %; Hematocrit 25.7 % (35.3-44.9); Hemoglobin 7.7 g/dL (11.5-15.4); Immature Granulocytes % 2.5 % (0-4); Lymphocytes # 1.2 K/mcL (0.6-4.6); Lymphocytes % 19.3 %; Mean Corpuscular Volume 90.2 fL (83.0-100.0); Mean Platelet Volume 10.3 fL (9.4-12.4); Monocytes # 0.5 K/mcL (0.0-1.3); Monocytes % 8.1 %; Neutrophils # 4.3 K/mcL (1.6-8.9); Nucleated Red Blood Cells 0.5 /100 WBC (0); Platelet Count 265 K/mcL (140-400); Red Blood Count 2.85 M/mcL (3.82-4.97); Red Cell Distribution Width 21.5 % (11.5-14.5); Segmented Neutrophils % 67.3 %; White Blood Count 6.4 K/mcL (4.3-11.1)
[2021-12-08 08:42] VITALS: BP 111/69; PULSE 112
[2021-12-08] MEDS ORDERED: Furosemide 20 MG/2 ML VIAL IVP ONE (08:44)
[2021-12-08 08:51] LABS: Calcium 7.6 mg/dL (8.6-10.3); Potassium 3.9 mEq/L (3.5-5.1)
[2021-12-08 09:43] LABS: Adenovirus Not Detected (Not Detect); Bordetella Pertussis Not Detected (Not Detect); Chlamydophila pneumoniae Not Detected (Not Detect); Coronavirus 229E Not Detected (Not Detect); Coronavirus HKU1 Not Detected (Not Detect); Coronavirus NL63 Not Detected (Not Detect); Coronavirus OC43 Not Detected (Not Detect); Human Metapneumovirus Not Detected (Not Detect); Human Rhinovirus/Enterovirus Not Detected (Not Detect); Influenza A Subtype 2009 H1 Not Detected (Not Detect); Influenza B Not Detected (Not Detect); Mycoplasma pneumoniae Not Detected (Not Detect); Parainfluenza Virus 1 Not Detected (Not Detect); Parainfluenza Virus 2 Not Detected (Not Detect); Parainfluenza Virus 3 Not Detected (Not Detect); Parainfluenza Virus 4 Not Detected (Not Detect); Respiratory Syncytial Virus Not Detected (Not Detect); SARS-CoV-2 Not Detected (Not Detect)
[2021-12-08] MEDS: Apixaban 5 MG TABLET PO SCH (10:06)
== END 2021-12-08 15:00 | disposition short-term general hospital (02) | DRG 871 ==
LOC: INPPIK 20:12
PROVIDERS: ADMIT Family Medicine; ATTEND Family Medicine

== ENCOUNTER 2021-12-16 14:37 | Inpatient (IN) ==
[2021-12-16] MEDS ORDERED: *HR* Dextrose 50 % in Water (Syg) 50 ML SYRINGE IVP PRN (16:46)
[2021-12-16] MEDS ORDERED: D5% in Water 1,000 ML IVC PRN (16:46)
[2021-12-16] MEDS ORDERED: Dextrose Gel 15 GM/37.5 ML TUBE PO PRN ×2 (16:46)
[2021-12-16] MEDS: Insulin LISPRO 300 UNITS/3 ML VIAL SUBQ SCH (22:33)
[2021-12-16] MEDS: Apixaban 5 MG TABLET PO SCH (22:33)
[2021-12-16] MEDS: Gabapentin 400 MG CAPSULE PO SCH (22:33)
[2021-12-17 08:20] LABS: Basophils % 0.4 %; Eosinophils # 0.2 K/mcL (0.0-0.6); Eosinophils % 3.4 %; Hematocrit 26.8 % (35.3-44.9); Hemoglobin 7.9 g/dL (11.5-15.4); Lymphocytes # 1.3 K/mcL (0.6-4.6); Lymphocytes % 28.6 %; Mean Corpuscular HGB Conc 29.5 g/dL (31.6-35.5); Mean Corpuscular Hemoglobin 27.2 pg (28.0-33.3); Mean Corpuscular Volume 92.4 fL (83.0-100.0); Mean Platelet Volume 9.9 fL (9.4-12.4); Monocytes # 0.4 K/mcL (0.0-1.3); Monocytes % 9.4 %; Neutrophils # 2.6 K/mcL (1.6-8.9); Nucleated Red Blood Cells 0.4 /100 WBC (0); Platelet Count 229 K/mcL (140-400); Red Cell Distribution Width 19.9 % (11.5-14.5); Segmented Neutrophils % 55.2 %; White Blood Count 4.7 K/mcL (4.3-11.1)
[2021-12-17 08:38] LABS: BUN/Creatinine Ratio 20 (6-26); Blood Urea Nitrogen 14 mg/dL (8-23); Calcium 7.6 mg/dL (8.6-10.3); Carbon Dioxide 32 mEq/L (23-29); Chloride 100 mEq/L (98-107); Glucose 109 mg/dL (70-105); Osmolality,Calculated 289 (280-300); Potassium 3.2 mEq/L (3.5-5.1); Sodium 139 mEq/L (136-145)
[2021-12-17] MEDS: Gabapentin 400 MG CAPSULE PO SCH ×3 (10:05→21:56)
[2021-12-17] MEDS: Apixaban 5 MG TABLET PO SCH ×2 (10:05→21:55)
[2021-12-17] MEDS: Metoprolol XL (24 HR) Succ 25 MG TAB.ER.24H PO SCH (10:06)
[2021-12-17] MEDS: Insulin LISPRO 300 UNITS/3 ML VIAL SUBQ SCH ×4 (10:06→21:56)
[2021-12-17] MEDS: Furosemide 40 MG TABLET PO SCH (10:06)
[2021-12-17] MEDS: LENVATINIB MESYLATE PO SCH (10:30)
[2021-12-18] MEDS: Furosemide 40 MG TABLET PO SCH (08:48)
[2021-12-18] MEDS: Metoprolol XL (24 HR) Succ 25 MG TAB.ER.24H PO SCH (08:48)
[2021-12-18] MEDS: Gabapentin 400 MG CAPSULE PO SCH ×3 (08:48→19:51)
[2021-12-18] MEDS: Apixaban 5 MG TABLET PO SCH ×2 (08:48→19:51)
[2021-12-18] MEDS: Insulin LISPRO 300 UNITS/3 ML VIAL SUBQ SCH ×4 (08:49→19:51)
[2021-12-18] MEDS: LENVATINIB MESYLATE PO SCH (08:49)
[2021-12-18] MEDS: Acetaminophen 325 MG TABLET PO PRN (13:24)
[2021-12-19] MEDS: Eucerin Cream 57 GM TUBE TP SCH ×2 (00:36→08:42)
[2021-12-19] MEDS: Lactobacillus 1 EACH CAP.SPRINK PO SCH ×3 (00:36→21:45)
[2021-12-19] MEDS: Insulin LISPRO 300 UNITS/3 ML VIAL SUBQ SCH ×4 (08:15→21:46)
[2021-12-19] MEDS: Acetaminophen 325 MG TABLET PO PRN (08:38)
[2021-12-19] MEDS: Apixaban 5 MG TABLET PO SCH ×2 (08:38→21:45)
[2021-12-19] MEDS: Metoprolol XL (24 HR) Succ 25 MG TAB.ER.24H PO SCH (08:38)
[2021-12-19] MEDS: Gabapentin 400 MG CAPSULE PO SCH ×3 (08:39→21:45)
[2021-12-19] MEDS: Furosemide 40 MG TABLET PO SCH (08:39)
[2021-12-19] MEDS: LENVATINIB MESYLATE PO SCH (08:45)
[2021-12-19] MEDS ORDERED: levoFLOXacin 500 MG TABLET PO SCH (09:00)
[2021-12-19 11:23] LABS: Adenovirus F 40/41 PCR Not detected (Not detect); Astrovirus PCR Not detected (Not detect); C.difficile Toxin A/B Gene PCR Not detected (Not detect); Campylobacter by PCR Not detected (Not detect); Cryptosporidium by PCR Not detected (Not detect); Cyclospora cayetanensis PCR Not detected (Not detect); Entamoeba histolytica PCR Not detected (Not detect); Enteroaggregative E.coli(EAEC) Not detected (Not detect); Enteropathogenic E.coli(EPEC) Not detected (Not detect); Enterotoxigenic E.coli (ETEC) Not detected (Not detect); Giardia lamblia PCR Not detected (Not detect); Norovirus GI/GII PCR Not detected (Not detect); Plesiomonas shigelloides PCR Not detected (Not detect); Rotavirus A PCR Not detected (Not detect); Salmonella PCR Not detected (Not detect); Sapovirus PCR Not detected (Not detect); Shig/EnteroinvasiveE coli EIEC Not detected (Not detect); Shigalike tox-prod E coli STEC Not detected (Not detect); Vibrio PCR Not detected (Not detect); Vibrio cholerae PCR Not detected (Not detect); Yersinia enterocolitica PCR DETECTED (Not detect)
[2021-12-19] MEDS ORDERED: GI Cocktail 40 ML EACH PO ONE (15:44)
[2021-12-20] MEDS: Acetaminophen 325 MG TABLET PO PRN ×3 (01:41→21:29)
[2021-12-20] MEDS ORDERED: Iopamidol - 370 500 ML MLS IVP ONE ×2 (02:02→06:38)
[2021-12-20] MEDS ORDERED: Iopamidol - 370 500 ML MLS PO ONE ×2 (02:27→06:37)
[2021-12-20 09:06] LABS: Basophils # 0.1 K/mcL (0.0-0.2); Basophils % 0.6 %; Eosinophils # 0.2 K/mcL (0.0-0.6); Eosinophils % 2.5 %; Hematocrit 32.7 % (35.3-44.9); Hemoglobin 9.7 g/dL (11.5-15.4); Lymphocytes # 2.1 K/mcL (0.6-4.6); Mean Corpuscular HGB Conc 29.7 g/dL (31.6-35.5); Mean Corpuscular Hemoglobin 27.2 pg (28.0-33.3); Mean Corpuscular Volume 91.9 fL (83.0-100.0); Mean Platelet Volume 10.8 fL (9.4-12.4); Monocytes # 0.5 K/mcL (0.0-1.3); Monocytes % 5.7 %; Neutrophils # 5.1 K/mcL (1.6-8.9); Platelet Count 253 K/mcL (140-400); Red Blood Count 3.56 M/mcL (3.82-4.97); Red Cell Distribution Width 19.9 % (11.5-14.5); Segmented Neutrophils % 64.2 %
[2021-12-20 09:21] LABS: Calcium 7.9 mg/dL (8.6-10.3); Potassium 3.7 mEq/L (3.5-5.1)
[2021-12-20] MEDS: Insulin LISPRO 300 UNITS/3 ML VIAL SUBQ SCH ×4 (09:29→21:32)
[2021-12-20] MEDS: Furosemide 40 MG TABLET PO SCH (10:18)
[2021-12-20] MEDS: Lactobacillus 1 EACH CAP.SPRINK PO SCH ×2 (10:18→21:28)
[2021-12-20] MEDS: Gabapentin 400 MG CAPSULE PO SCH ×3 (10:19→21:28)
[2021-12-20] MEDS: LENVATINIB MESYLATE PO SCH (10:19)
[2021-12-20] MEDS: Apixaban 5 MG TABLET PO SCH ×2 (10:19→21:28)
[2021-12-20] MEDS: Metoprolol XL (24 HR) Succ 25 MG TAB.ER.24H PO SCH (10:19)
[2021-12-20] MEDS: Eucerin Cream 57 GM TUBE TP SCH (10:19)
[2021-12-20] MEDS ORDERED: MetroNIDAZOLE 500 MG/100 ML 500 MG/100 ML BAG IVPB SCH (16:04)
[2021-12-20] MEDS: MetroNIDAZOLE 500 MG/100 ML 500 MG/100 ML BAG IVPB SCH (23:17)
[2021-12-21] MEDS: Lactobacillus 1 EACH CAP.SPRINK PO SCH ×2 (09:23→20:11)
[2021-12-21] MEDS: Gabapentin 400 MG CAPSULE PO SCH ×3 (09:23→20:12)
[2021-12-21] MEDS: Insulin LISPRO 300 UNITS/3 ML VIAL SUBQ SCH ×4 (09:24→19:32)
[2021-12-21] MEDS: Apixaban 5 MG TABLET PO SCH ×2 (09:24→20:11)
[2021-12-21] MEDS: Metoprolol XL (24 HR) Succ 25 MG TAB.ER.24H PO SCH (09:24)
[2021-12-21] MEDS: Furosemide 40 MG TABLET PO SCH (09:24)
[2021-12-21] MEDS: MetroNIDAZOLE 500 MG/100 ML 500 MG/100 ML BAG IVPB SCH ×3 (09:27→23:33)
[2021-12-21] MEDS: Eucerin Cream 57 GM TUBE TP SCH (09:40)
[2021-12-21] MEDS: LENVATINIB MESYLATE PO SCH (09:51)
[2021-12-21] MEDS ORDERED: Lactobacillus 1 EACH CAP.SPRINK ONE (19:55)
[2021-12-21] MEDS ORDERED: Apixaban 5 MG TABLET ONE (19:55)
[2021-12-21] MEDS ORDERED: Gabapentin 400 MG CAPSULE ONE (19:56)
[2021-12-21] MEDS ORDERED: MetroNIDAZOLE 500 MG/100 ML 500 MG/100 ML BAG IVPB ONE (19:56)
[2021-12-22] MEDS: MetroNIDAZOLE 500 MG/100 ML 500 MG/100 ML BAG IVPB SCH ×3 (06:44→23:54)
[2021-12-22] MEDS: Insulin LISPRO 300 UNITS/3 ML VIAL SUBQ SCH ×4 (09:16→20:51)
[2021-12-22] MEDS: Lactobacillus 1 EACH CAP.SPRINK PO SCH ×2 (09:17→20:54)
[2021-12-22] MEDS: Metoprolol XL (24 HR) Succ 25 MG TAB.ER.24H PO SCH (09:17)
[2021-12-22] MEDS: Apixaban 5 MG TABLET PO SCH ×2 (09:17→20:54)
[2021-12-22] MEDS: Furosemide 40 MG TABLET PO SCH (09:17)
[2021-12-22] MEDS: Gabapentin 400 MG CAPSULE PO SCH ×3 (09:17→20:54)
[2021-12-22] MEDS: Eucerin Cream 57 GM TUBE TP SCH (09:18)
[2021-12-22] MEDS: LENVATINIB MESYLATE PO SCH (09:21)
[2021-12-23] MEDS: MetroNIDAZOLE 500 MG/100 ML 500 MG/100 ML BAG IVPB SCH ×3 (06:56→21:42)
[2021-12-23 07:08] LABS: Basophils % 0.5 %; Eosinophils # 0.2 K/mcL (0.0-0.6); Eosinophils % 2.9 %; Hematocrit 29.9 % (35.3-44.9); Hemoglobin 8.8 g/dL (11.5-15.4); Immature Granulocytes % 1.7 % (0-4); Lymphocytes # 1.5 K/mcL (0.6-4.6); Lymphocytes % 26.4 %; Mean Corpuscular HGB Conc 29.4 g/dL (31.6-35.5); Mean Corpuscular Hemoglobin 27.6 pg (28.0-33.3); Mean Corpuscular Volume 93.7 fL (83.0-100.0); Monocytes # 0.6 K/mcL (0.0-1.3); Monocytes % 10.2 %; Neutrophils # 3.4 K/mcL (1.6-8.9); Nucleated Red Blood Cells 0.3 /100 WBC (0); Platelet Count 236 K/mcL (140-400); Red Blood Count 3.19 M/mcL (3.82-4.97); Red Cell Distribution Width 20.2 % (11.5-14.5); Segmented Neutrophils % 58.3 %; White Blood Count 5.8 K/mcL (4.3-11.1)
[2021-12-23 07:23] LABS: BUN/Creatinine Ratio 17 (6-26); Blood Urea Nitrogen 12 mg/dL (8-23); Calcium 7.9 mg/dL (8.6-10.3); Carbon Dioxide 29 mEq/L (23-29); Chloride 101 mEq/L (98-107); Glucose 96 mg/dL (70-105); Osmolality,Calculated 284 (280-300); Potassium 3.7 mEq/L (3.5-5.1); Sodium 137 mEq/L (136-145)
[2021-12-23] MEDS: Insulin LISPRO 300 UNITS/3 ML VIAL SUBQ SCH ×4 (08:42→20:33)
[2021-12-23] MEDS: Apixaban 5 MG TABLET PO SCH ×2 (08:50→20:33)
[2021-12-23] MEDS: Furosemide 40 MG TABLET PO SCH (08:50)
[2021-12-23] MEDS: Lactobacillus 1 EACH CAP.SPRINK PO SCH ×2 (08:50→20:33)
[2021-12-23] MEDS: LENVATINIB MESYLATE PO SCH (08:51)
[2021-12-23] MEDS: Metoprolol XL (24 HR) Succ 25 MG TAB.ER.24H PO SCH (08:51)
[2021-12-23] MEDS: Gabapentin 400 MG CAPSULE PO SCH ×3 (08:51→20:33)
[2021-12-23] MEDS: Eucerin Cream 57 GM TUBE TP SCH (11:34)
[2021-12-23] MEDS: Acetaminophen 325 MG TABLET PO PRN (14:35)
[2021-12-24] MEDS: Insulin LISPRO 300 UNITS/3 ML VIAL SUBQ SCH ×4 (07:46→21:07)
[2021-12-24] MEDS: MetroNIDAZOLE 500 MG/100 ML 500 MG/100 ML BAG IVPB SCH ×3 (08:24→23:17)
[2021-12-24] MEDS: Furosemide 40 MG TABLET PO SCH (08:24)
[2021-12-24] MEDS: Gabapentin 400 MG CAPSULE PO SCH ×3 (08:24→21:17)
[2021-12-24] MEDS: Metoprolol XL (24 HR) Succ 25 MG TAB.ER.24H PO SCH (08:24)
[2021-12-24] MEDS: Acetaminophen 325 MG TABLET PO PRN ×2 (08:24→15:54)
[2021-12-24] MEDS: Lactobacillus 1 EACH CAP.SPRINK PO SCH ×2 (08:25→21:17)
[2021-12-24] MEDS: Apixaban 5 MG TABLET PO SCH ×2 (08:25→21:17)
[2021-12-24] MEDS: Eucerin Cream 57 GM TUBE TP SCH (08:25)
[2021-12-24] MEDS: LENVATINIB MESYLATE PO SCH (10:22)
[2021-12-24] MEDS: Furosemide 20 MG TABLET PO SCH (18:23)
[2021-12-24] MEDS ORDERED: 0.9 % Sodium Chloride 500 ML IV ONE (18:34)
[2021-12-25] MEDS: MetroNIDAZOLE 500 MG/100 ML 500 MG/100 ML BAG IVPB SCH ×3 (06:53→23:31)
[2021-12-25] MEDS: Insulin LISPRO 300 UNITS/3 ML VIAL SUBQ SCH ×4 (08:00→20:32)
[2021-12-25] MEDS: Lactobacillus 1 EACH CAP.SPRINK PO SCH ×2 (08:51→20:32)
[2021-12-25] MEDS: Metoprolol XL (24 HR) Succ 25 MG TAB.ER.24H PO SCH (08:51)
[2021-12-25] MEDS: Apixaban 5 MG TABLET PO SCH ×2 (08:51→20:32)
[2021-12-25] MEDS: Gabapentin 400 MG CAPSULE PO SCH ×3 (08:51→20:32)
[2021-12-25] MEDS: Eucerin Cream 57 GM TUBE TP SCH (08:52)
[2021-12-25] MEDS: LENVATINIB MESYLATE PO SCH (08:52)
[2021-12-25] MEDS: Furosemide 20 MG TABLET PO SCH ×2 (08:55→17:38)
[2021-12-26] MEDS: MetroNIDAZOLE 500 MG/100 ML 500 MG/100 ML BAG IVPB SCH ×3 (06:37→23:16)
[2021-12-26] MEDS: Lactobacillus 1 EACH CAP.SPRINK PO SCH ×2 (07:44→20:27)
[2021-12-26] MEDS: Gabapentin 400 MG CAPSULE PO SCH ×3 (07:45→20:27)
[2021-12-26] MEDS: Apixaban 5 MG TABLET PO SCH ×2 (07:45→20:27)
[2021-12-26] MEDS: Insulin LISPRO 300 UNITS/3 ML VIAL SUBQ SCH ×4 (07:45→20:28)
[2021-12-26] MEDS: Metoprolol XL (24 HR) Succ 25 MG TAB.ER.24H PO SCH (07:45)
[2021-12-26] MEDS: Furosemide 20 MG TABLET PO SCH (07:45)
[2021-12-26] MEDS: Eucerin Cream 57 GM TUBE TP SCH (07:47)
[2021-12-26 09:21] LABS: Hematocrit 32.3 % (35.3-44.9); Hemoglobin 9.5 g/dL (11.5-15.4); Mean Corpuscular Volume 92.8 fL (83.0-100.0); Red Blood Count 3.48 M/mcL (3.82-4.97); White Blood Count 6.1 K/mcL (4.3-11.1)
[2021-12-26 09:22] LABS: Lymphocytes # 1.3 K/mcL (0.6-4.6); Lymphocytes % 21.7 %; Mean Corpuscular HGB Conc 29.4 g/dL (31.6-35.5); Mean Corpuscular Hemoglobin 27.3 pg (28.0-33.3); Mean Platelet Volume 9.6 fL (9.4-12.4); Monocytes # 0.7 K/mcL (0.0-1.3); Monocytes % 11.1 %; Neutrophils # 3.7 K/mcL (1.6-8.9); Platelet Count 265 K/mcL (140-400); Red Cell Distribution Width 20.5 % (11.5-14.5); Segmented Neutrophils % 60.2 %
[2021-12-26 09:23] LABS: Basophils % 0.5 %; Eosinophils # 0.2 K/mcL (0.0-0.6); Eosinophils % 2.4 %; Immature Granulocytes % 4.1 % (0-4)
[2021-12-26 09:31] LABS: Calcium 7.4 mg/dL (8.6-10.3); Potassium 3.8 mEq/L (3.5-5.1)
[2021-12-26] MEDS ORDERED: 0.9 % Sodium Chloride 1,000 ML IVC SCH (10:30)
[2021-12-26] MEDS: LENVATINIB MESYLATE PO SCH (11:26)
[2021-12-26] MEDS: Terconazole Vag CRM 20 GM TUBE VG SCH (14:36)
[2021-12-26] MEDS: Acetaminophen 325 MG TABLET PO PRN (16:26)
[2021-12-27] MEDS: MetroNIDAZOLE 500 MG/100 ML 500 MG/100 ML BAG IVPB SCH ×3 (07:22→23:22)
[2021-12-27] MEDS: Insulin LISPRO 300 UNITS/3 ML VIAL SUBQ SCH ×4 (07:26→23:11)
[2021-12-27 07:48] LABS: Basophils # 0.1 K/mcL (0.0-0.2); Basophils % 0.8 %; Eosinophils # 0.2 K/mcL (0.0-0.6); Eosinophils % 3.9 %; Hematocrit 32.8 % (35.3-44.9); Hemoglobin 9.7 g/dL (11.5-15.4); Immature Granulocytes % 4.4 % (0-4); Lymphocytes # 1.5 K/mcL (0.6-4.6); Lymphocytes % 24.7 %; Mean Corpuscular HGB Conc 29.6 g/dL (31.6-35.5); Mean Corpuscular Hemoglobin 27.4 pg (28.0-33.3); Mean Corpuscular Volume 92.7 fL (83.0-100.0); Mean Platelet Volume 9.7 fL (9.4-12.4); Monocytes # 0.6 K/mcL (0.0-1.3); Monocytes % 9.3 %; Neutrophils # 3.5 K/mcL (1.6-8.9); Nucleated Red Blood Cells 0.5 /100 WBC (0); Platelet Count 251 K/mcL (140-400); Red Blood Count 3.54 M/mcL (3.82-4.97); Red Cell Distribution Width 20.7 % (11.5-14.5); Segmented Neutrophils % 56.9 %; White Blood Count 6.1 K/mcL (4.3-11.1)
[2021-12-27] MEDS: Gabapentin 400 MG CAPSULE PO SCH ×3 (07:50→23:21)
[2021-12-27] MEDS: Lactobacillus 1 EACH CAP.SPRINK PO SCH ×2 (07:50→23:20)
[2021-12-27] MEDS: Metoprolol XL (24 HR) Succ 25 MG TAB.ER.24H PO SCH (07:50)
[2021-12-27] MEDS: Apixaban 5 MG TABLET PO SCH ×2 (07:50→23:21)
[2021-12-27] MEDS: LENVATINIB MESYLATE PO SCH (07:51)
[2021-12-27] MEDS: Eucerin Cream 57 GM TUBE TP SCH (07:51)
[2021-12-27 08:17] LABS: Calcium 7.7 mg/dL (8.6-10.3)
[2021-12-27] MEDS: Furosemide 20 MG TABLET PO SCH (15:43)
[2021-12-27] MEDS: Acetaminophen 325 MG TABLET PO PRN (18:12)
[2021-12-27] MEDS: Terconazole Vag CRM 20 GM TUBE VG SCH (23:24)
[2021-12-28] MEDS: MetroNIDAZOLE 500 MG/100 ML 500 MG/100 ML BAG IVPB SCH ×3 (07:26→22:26)
[2021-12-28] MEDS: Furosemide 20 MG TABLET PO SCH ×2 (07:29→16:43)
[2021-12-28] MEDS: Apixaban 5 MG TABLET PO SCH ×2 (07:29→19:47)
[2021-12-28] MEDS: Lactobacillus 1 EACH CAP.SPRINK PO SCH ×2 (07:29→19:47)
[2021-12-28] MEDS: Acetaminophen 325 MG TABLET PO PRN (07:30)
[2021-12-28] MEDS: Gabapentin 400 MG CAPSULE PO SCH ×3 (07:30→19:47)
[2021-12-28] MEDS: Metoprolol XL (24 HR) Succ 25 MG TAB.ER.24H PO SCH (07:30)
[2021-12-28] MEDS: Insulin LISPRO 300 UNITS/3 ML VIAL SUBQ SCH ×4 (07:30→19:29)
[2021-12-28] MEDS: Eucerin Cream 57 GM TUBE TP SCH (07:31)
[2021-12-28] MEDS: LENVATINIB MESYLATE PO SCH (08:13)
[2021-12-28] MEDS: Ondansetron 4 MG/2 ML VIAL IVP PRN (19:47)
[2021-12-28] MEDS: Furosemide 20 MG/2 ML VIAL IVP SCH (20:02)
[2021-12-28] MEDS ORDERED: Terconazole Vag CRM 20 GM TUBE VG SCH (21:00)
[2021-12-29 00:28] LABS: Bilirubin,Urine Small (Negative); Blood,Urine Negative (Negative); Clarity,Urine Cloudy (Clear); Color,Urine Yellow (Yellow); Glucose,Urine (UA) Normal (Normal); Ketones,Urine Trace mg/dL (Negative); Leukocyte Esterase,Urine Large (Negative); Nitrite,Urine Negative (Negative); Protein,Urine 30 mg/dL (Neg-Trace); Urobilinogen,Urine Normal (Normal)
[2021-12-29 00:40] LABS: Bacteria,Urine Moderate per hpf (None-Few); WBC,Urine 30-50 per hpf (0-3)
[2021-12-29 00:41] LABS: Budding Yeast,Urine Moderate per hpf (None Seen)
[2021-12-29] MEDS: Acetaminophen 325 MG TABLET PO PRN (02:46)
[2021-12-29] MEDS: MetroNIDAZOLE 500 MG/100 ML 500 MG/100 ML BAG IVPB SCH ×2 (05:58→14:11)
[2021-12-29] MEDS ORDERED: 0.9 % Sodium Chloride 500 ML IVC ONE ×2 (07:47→22:43)
[2021-12-29] MEDS: Insulin LISPRO 300 UNITS/3 ML VIAL SUBQ SCH ×4 (07:55→20:13)
[2021-12-29] MEDS: Lactobacillus 1 EACH CAP.SPRINK PO SCH ×2 (07:57→20:13)
[2021-12-29] MEDS: Gabapentin 400 MG CAPSULE PO SCH ×3 (07:57→20:13)
[2021-12-29] MEDS: Eucerin Cream 57 GM TUBE TP SCH (07:57)
[2021-12-29] MEDS: Apixaban 5 MG TABLET PO SCH ×2 (07:57→20:13)
[2021-12-29] MEDS: Metoprolol XL (24 HR) Succ 25 MG TAB.ER.24H PO SCH (07:57)
[2021-12-29] MEDS: LENVATINIB MESYLATE PO SCH (07:58)
[2021-12-29 08:30] LABS: Basophils % 0.6 %; Eosinophils # 0.2 K/mcL (0.0-0.6); Eosinophils % 2.3 %; Hematocrit 30.4 % (35.3-44.9); Hemoglobin 8.9 g/dL (11.5-15.4); Immature Granulocytes % 1.6 % (0-4); Lymphocytes # 1.5 K/mcL (0.6-4.6); Lymphocytes % 21.8 %; Mean Corpuscular HGB Conc 29.3 g/dL (31.6-35.5); Mean Corpuscular Hemoglobin 27.4 pg (28.0-33.3); Mean Corpuscular Volume 93.5 fL (83.0-100.0); Mean Platelet Volume 9.7 fL (9.4-12.4); Monocytes # 0.8 K/mcL (0.0-1.3); Neutrophils # 4.4 K/mcL (1.6-8.9); Nucleated Red Blood Cells 0.4 /100 WBC (0); Platelet Count 279 K/mcL (140-400); Red Blood Count 3.25 M/mcL (3.82-4.97); Red Cell Distribution Width 21.2 % (11.5-14.5); Segmented Neutrophils % 62.7 %
[2021-12-29 08:47] LABS: Calcium 7.6 mg/dL (8.6-10.3); Magnesium 1.3 mg/dL (1.6-2.6); Potassium 4.1 mEq/L (3.5-5.1)
[2021-12-29] MEDS ORDERED: Furosemide 20 MG/2 ML VIAL IVP SCH (09:00)
[2021-12-29 10:17] LABS: Adenovirus F 40/41 PCR Not detected (Not detect); Astrovirus PCR Not detected (Not detect); C.difficile Toxin A/B Gene PCR Not detected (Not detect); Campylobacter by PCR Not detected (Not detect); Cryptosporidium by PCR Not detected (Not detect); Cyclospora cayetanensis PCR Not detected (Not detect); E. coli O157 by PCR Not detected (Not detect); Entamoeba histolytica PCR Not detected (Not detect); Enteroaggregative E.coli(EAEC) Not detected (Not detect); Enteropathogenic E.coli(EPEC) Not detected (Not detect); Enterotoxigenic E.coli (ETEC) Not detected (Not detect); Giardia lamblia PCR Not detected (Not detect); Norovirus GI/GII PCR Not detected (Not detect); Plesiomonas shigelloides PCR Not detected (Not detect); Rotavirus A PCR Not detected (Not detect); Salmonella PCR Not detected (Not detect); Sapovirus PCR Not detected (Not detect); Shig/EnteroinvasiveE coli EIEC Not detected (Not detect); Shigalike tox-prod E coli STEC Not detected (Not detect); Vibrio PCR Not detected (Not detect); Vibrio cholerae PCR Not detected (Not detect); Yersinia enterocolitica PCR Not detected (Not detect)
[2021-12-29] MEDS: Ondansetron 4 MG/2 ML VIAL IVP PRN (15:03)
[2021-12-29] MEDS ORDERED: Albumin 25% 25gram/100mL 25 GM/100 ML IV.SOLN IVPB PRN (16:15)
[2021-12-29] MEDS: Sucralfate 1 GM TABLET PO SCH ×2 (17:42→21:13)
[2021-12-29] MEDS: Pantoprazole 40 MG VIAL IVP SCH (18:20)
[2021-12-29] MEDS ORDERED: Magnesium Sulfate 1 GM in 0.9 % Sodium Chloride 1 GM/100 ML IV.SOLN IVPB ONE (23:18)
[2021-12-30] MEDS ORDERED: *HR* Metoprolol 5 MG/5 ML VIAL IVP ONE (00:24)
[2021-12-30] MEDS: MetroNIDAZOLE 500 MG/100 ML 500 MG/100 ML BAG IVPB SCH (00:40)
[2021-12-30 00:44] LABS: Hematocrit 31.7 % (35.3-44.9); Hemoglobin 9.3 g/dL (11.5-15.4); Mean Corpuscular HGB Conc 29.3 g/dL (31.6-35.5); Mean Corpuscular Hemoglobin 27.4 pg (28.0-33.3); Mean Corpuscular Volume 93.2 fL (83.0-100.0); Mean Platelet Volume 9.3 fL (9.4-12.4); Platelet Count 313 K/mcL (140-400); Red Cell Distribution Width 21.5 % (11.5-14.5); White Blood Count 9.3 K/mcL (4.3-11.1)
[2021-12-30 01:18] LABS: Calcium 7.5 mg/dL (8.6-10.3); Potassium 4.2 mEq/L (3.5-5.1)
[2021-12-30 01:19] LABS: Albumin 1.8 g/dL (3.5-5.7); Albumin/Globulin Ratio 0.7 (1.1-2.2); Bilirubin,Indirect 0.4 mg/dL (0.0-1.0); Bilirubin,Total 0.4 mg/dL (0.3-1.0); Globulin 2.7 g/dL (2.4-3.5); Total Protein 4.5 g/dL (6.4-8.9)
[2021-12-30 01:20] LABS: Magnesium 2.1 mg/dL (1.6-2.6); Phosphorous 2.8 mg/dL (2.7-4.5)
[2021-12-30] MEDS ORDERED: Albumin Human 5% 12.5 GM/250 ML IV.SOLN IVPB ONE (03:00)
[2021-12-30] MEDS: Gabapentin 400 MG CAPSULE PO SCH ×3 (07:45→20:40)
[2021-12-30] MEDS: Nitrofurantoin (BID) 100 MG CAPSULE PO SCH ×2 (07:45→15:58)
[2021-12-30] MEDS: Eucerin Cream 57 GM TUBE TP SCH (07:45)
[2021-12-30] MEDS: Apixaban 5 MG TABLET PO SCH ×2 (07:45→20:40)
[2021-12-30] MEDS: Metoprolol XL (24 HR) Succ 25 MG TAB.ER.24H PO SCH (07:45)
[2021-12-30] MEDS: Lactobacillus 1 EACH CAP.SPRINK PO SCH ×2 (07:45→20:40)
[2021-12-30] MEDS: Sucralfate 1 GM TABLET PO SCH ×4 (07:45→20:40)
[2021-12-30] MEDS: LENVATINIB MESYLATE PO SCH ×2 (07:46→08:27)
[2021-12-30] MEDS: Insulin LISPRO 300 UNITS/3 ML VIAL SUBQ SCH ×4 (07:46→20:40)
[2021-12-30] MEDS: Pantoprazole 40 MG VIAL IVP SCH (09:14)
[2021-12-30 09:28] LABS: Thyroid Stimulating Hormone 28.826 mcIU/mL (0.340-5.600)
[2021-12-30] MEDS: cefTRIAXone 1,000 MG in 0.9 % Sodium Chloride 10 ML IVP SCH (12:10)
[2021-12-30] MEDS: Albumin 25% 25gram/100mL 25 GM/100 ML IV.SOLN IVPB SCH ×2 (12:22→18:33)
[2021-12-30] MEDS: 0.9 % Sodium Chloride 1,000 ML IVC SCH (13:53)
[2021-12-31] MEDS: Albumin 25% 25gram/100mL 25 GM/100 ML IV.SOLN IVPB SCH (03:02)
[2021-12-31] MEDS: 0.9 % Sodium Chloride 1,000 ML IVC SCH (03:02)
[2021-12-31 05:40] LABS: Hematocrit 26.1 % (35.3-44.9); Hemoglobin 7.4 g/dL (11.5-15.4); Mean Corpuscular HGB Conc 28.4 g/dL (31.6-35.5); Mean Corpuscular Hemoglobin 27.4 pg (28.0-33.3); Mean Corpuscular Volume 96.7 fL (83.0-100.0); Mean Platelet Volume 10.2 fL (9.4-12.4); Platelet Count 265 K/mcL (140-400); Red Cell Distribution Width 21.5 % (11.5-14.5); White Blood Count 5.9 K/mcL (4.3-11.1)
[2021-12-31] MEDS: Insulin LISPRO 300 UNITS/3 ML VIAL SUBQ SCH ×4 (07:21→21:23)
[2021-12-31] MEDS: Metoprolol XL (24 HR) Succ 25 MG TAB.ER.24H PO SCH (07:30)
[2021-12-31] MEDS: Nitrofurantoin (BID) 100 MG CAPSULE PO SCH (07:30)
[2021-12-31] MEDS: Lactobacillus 1 EACH CAP.SPRINK PO SCH ×2 (07:30→21:26)
[2021-12-31] MEDS: Sucralfate 1 GM TABLET PO SCH ×4 (07:30→21:26)
[2021-12-31] MEDS: Gabapentin 400 MG CAPSULE PO SCH ×3 (07:30→21:26)
[2021-12-31] MEDS: Apixaban 5 MG TABLET PO SCH ×2 (07:30→21:26)
[2021-12-31] MEDS: Eucerin Cream 57 GM TUBE TP SCH (07:31)
[2021-12-31 07:42] LABS: Albumin 3.1 g/dL (3.5-5.7); Albumin/Globulin Ratio 1.8 (1.1-2.2); Bilirubin,Total 0.4 mg/dL (0.3-1.0); Calcium 7.9 mg/dL (8.6-10.3); Globulin 1.7 g/dL (2.4-3.5); Magnesium 1.8 mg/dL (1.6-2.6); Potassium 3.5 mEq/L (3.5-5.1); Total Protein 4.8 g/dL (6.4-8.9)
[2021-12-31] MEDS: cefTRIAXone 1,000 MG in 0.9 % Sodium Chloride 10 ML IVP SCH (08:26)
[2021-12-31] MEDS: Pantoprazole 40 MG VIAL IVP SCH (08:27)
[2021-12-31] MEDS: LENVATINIB MESYLATE PO SCH (09:48)
[2021-12-31] MEDS: Furosemide 20 MG/2 ML VIAL IVP SCH (09:57)
[2021-12-31] MEDS ORDERED: Furosemide 20 MG/2 ML VIAL IVP ONE (10:35)
[2021-12-31 11:01] LABS: Prealbumin 6.7 mg/dL (17.0-34.0)
[2021-12-31 11:10] LABS: Procalcitonin 0.2 ng/mL (0.00-0.15)
[2021-12-31] MEDS: Acetaminophen 325 MG TABLET PO PRN (12:32)
[2022-01-01 05:56] LABS: Hematocrit 27.9 % (35.3-44.9); Mean Corpuscular HGB Conc 28.7 g/dL (31.6-35.5); Mean Corpuscular Hemoglobin 27.8 pg (28.0-33.3); Mean Corpuscular Volume 96.9 fL (83.0-100.0); Mean Platelet Volume 10.1 fL (9.4-12.4); Platelet Count 254 K/mcL (140-400); Red Blood Count 2.88 M/mcL (3.82-4.97); Red Cell Distribution Width 21.5 % (11.5-14.5); White Blood Count 8.5 K/mcL (4.3-11.1)
[2022-01-01] MEDS: Sucralfate 1 GM TABLET PO SCH ×4 (06:04→21:49)
[2022-01-01 06:16] LABS: Calcium 7.8 mg/dL (8.6-10.3); Magnesium 1.7 mg/dL (1.6-2.6); Potassium 3.6 mEq/L (3.5-5.1)
[2022-01-01] MEDS ORDERED: Furosemide 20 MG/2 ML VIAL IVP ONE (08:30)
[2022-01-01] MEDS: cefTRIAXone 1,000 MG in 0.9 % Sodium Chloride 10 ML IVP SCH (09:37)
[2022-01-01] MEDS: Lactobacillus 1 EACH CAP.SPRINK PO SCH ×2 (09:42→21:49)
[2022-01-01] MEDS: Gabapentin 400 MG CAPSULE PO SCH ×3 (09:43→21:49)
[2022-01-01] MEDS: Eucerin Cream 57 GM TUBE TP SCH (09:43)
[2022-01-01] MEDS: Metoprolol XL (24 HR) Succ 25 MG TAB.ER.24H PO SCH (09:43)
[2022-01-01] MEDS: Fluconazole 100 MG TABLET PO SCH (09:43)
[2022-01-01] MEDS: Apixaban 5 MG TABLET PO SCH ×2 (09:43→21:49)
[2022-01-01] MEDS: Pantoprazole 40 MG VIAL IVP SCH (09:45)
[2022-01-01] MEDS: Insulin LISPRO 300 UNITS/3 ML VIAL SUBQ SCH ×4 (09:47→21:49)
[2022-01-01] MEDS: LENVATINIB MESYLATE PO SCH (10:02)
[2022-01-02] MEDS: Sucralfate 1 GM TABLET PO SCH ×4 (07:18→21:01)
[2022-01-02 07:55] LABS: Hematocrit 34.5 % (35.3-44.9); Hemoglobin 9.8 g/dL (11.5-15.4); Mean Corpuscular HGB Conc 28.4 g/dL (31.6-35.5); Mean Corpuscular Hemoglobin 28.2 pg (28.0-33.3); Mean Corpuscular Volume 99.4 fL (83.0-100.0); Mean Platelet Volume 10.2 fL (9.4-12.4); Platelet Count 226 K/mcL (140-400); Red Blood Count 3.47 M/mcL (3.82-4.97); Red Cell Distribution Width 21.4 % (11.5-14.5); White Blood Count 6.8 K/mcL (4.3-11.1)
[2022-01-02] MEDS: cefTRIAXone 1,000 MG in 0.9 % Sodium Chloride 10 ML IVP SCH (08:59)
[2022-01-02] MEDS: Pantoprazole 40 MG VIAL IVP SCH (09:00)
[2022-01-02] MEDS: Furosemide 20 MG/2 ML VIAL IVP PRN ×3 (09:00→16:24)
[2022-01-02] MEDS: Apixaban 5 MG TABLET PO SCH ×2 (09:03→21:01)
[2022-01-02] MEDS: Gabapentin 400 MG CAPSULE PO SCH ×3 (09:03→21:01)
[2022-01-02] MEDS: Eucerin Cream 57 GM TUBE TP SCH (09:03)
[2022-01-02] MEDS: Fluconazole 100 MG TABLET PO SCH (09:03)
[2022-01-02] MEDS: Metoprolol XL (24 HR) Succ 25 MG TAB.ER.24H PO SCH (09:03)
[2022-01-02] MEDS: Lactobacillus 1 EACH CAP.SPRINK PO SCH ×2 (09:03→21:01)
[2022-01-02] MEDS: Insulin LISPRO 300 UNITS/3 ML VIAL SUBQ SCH ×4 (09:07→21:01)
[2022-01-02] MEDS: LENVATINIB MESYLATE PO SCH ×2 (09:20→09:21)
[2022-01-02 09:26] LABS: BUN/Creatinine Ratio 23 (6-26); Blood Urea Nitrogen 16 mg/dL (8-23); Calcium 7.6 mg/dL (8.6-10.3); Carbon Dioxide 22 mEq/L (23-29); Chloride 108 mEq/L (98-107); Glucose 103 mg/dL (70-105); Magnesium 1.5 mg/dL (1.6-2.6); Osmolality,Calculated 285 (280-300); Potassium 3.7 mEq/L (3.5-5.1); Sodium 137 mEq/L (136-145)
[2022-01-02] MEDS ORDERED: Albumin 25% 25gram/100mL 25 GM/100 ML IV.SOLN IVPB ONE (12:54)
[2022-01-02] MEDS ORDERED: Furosemide 20 MG/2 ML VIAL IVP ONE (12:54)
[2022-01-02] MEDS: Magnesium Oxide 400 MG TABLET PO SCH (14:42)
[2022-01-03 00:34] VITALS: RESP 17
[2022-01-03 05:46] VITALS: BP 106/62; PULSE 95; TEMP 97.7; O2SAT 92
[2022-01-03 06:52] LABS: Hematocrit 30.9 % (35.3-44.9); Hemoglobin 8.9 g/dL (11.5-15.4); Immature Granulocytes % 0.6 % (0-4); Mean Corpuscular HGB Conc 28.8 g/dL (31.6-35.5); Mean Corpuscular Hemoglobin 27.7 pg (28.0-33.3); Mean Corpuscular Volume 96.3 fL (83.0-100.0); Mean Platelet Volume 9.9 fL (9.4-12.4); Platelet Count 281 K/mcL (140-400); Red Blood Count 3.21 M/mcL (3.82-4.97); Red Cell Distribution Width 21.1 % (11.5-14.5); White Blood Count 6.7 K/mcL (4.3-11.1)
[2022-01-03 07:08] LABS: Basophils % 0.4 %; Eosinophils # 0.3 K/mcL (0.0-0.6); Eosinophils % 4.4 %; Lymphocytes # 1.4 K/mcL (0.6-4.6); Lymphocytes % 20.7 %; Monocytes # 0.6 K/mcL (0.0-1.3); Monocytes % 8.5 %; Segmented Neutrophils % 65.4 %
[2022-01-03 07:09] LABS: Neutrophils # 4.4 K/mcL (1.6-8.9)
[2022-01-03 07:19] LABS: Calcium 7.7 mg/dL (8.6-10.3); Potassium 3.8 mEq/L (3.5-5.1)
[2022-01-03] MEDS ORDERED: Furosemide 20 MG/2 ML VIAL IVP ONE (08:09)
[2022-01-03] MEDS: Magnesium Oxide 400 MG TABLET PO SCH (08:17)
[2022-01-03] MEDS: Sucralfate 1 GM TABLET PO SCH (08:17)
[2022-01-03] MEDS: Lactobacillus 1 EACH CAP.SPRINK PO SCH (08:17)
[2022-01-03] MEDS: Gabapentin 400 MG CAPSULE PO SCH (08:17)
[2022-01-03] MEDS: Eucerin Cream 57 GM TUBE TP SCH (08:18)
[2022-01-03] MEDS: Insulin LISPRO 300 UNITS/3 ML VIAL SUBQ SCH (08:18)
[2022-01-03] MEDS: Metoprolol XL (24 HR) Succ 25 MG TAB.ER.24H PO SCH (08:18)
[2022-01-03] MEDS: Fluconazole 100 MG TABLET PO SCH (08:18)
[2022-01-03] MEDS: Apixaban 5 MG TABLET PO SCH (08:18)
[2022-01-03] MEDS: Pantoprazole 40 MG VIAL IVP SCH (08:19)
[2022-01-03] MEDS: cefTRIAXone 1,000 MG in 0.9 % Sodium Chloride 10 ML IVP SCH (08:19)
[2022-01-03] MEDS: LENVATINIB MESYLATE PO SCH ×2 (08:19→08:28)
== END 2022-01-03 09:58 | disposition short-term general hospital (02) | DRG 371 ==
LOC: INPPIK 19:55
PROVIDERS: ADMIT Family Medicine; ATTEND Family Medicine